=== PATIENT | female | born 1975 | race Caucasian/White ===

== ENCOUNTER 2020-03-26 12:03 | Outpatient (REF) | payer MEDICAID, SELFPAY | END 2020-03-26 12:04 | disposition home or self-care (01) | LOC: HO.LAB 12:03 | PROVIDERS: Visit Provider Internal Medicine | DX: Z20.828 Contact with and (suspected) exposure to other viral communicable diseases (principal) | CPT/HCPCS: C9803; U0003 ==

== ENCOUNTER 2022-12-13 15:35 | Outpatient (REF) | payer MEDICAID, SELFPAY ==
[2022-12-13 18:35] LABS: Thyroid Stimulating Hormone 0.79 uIU/mL (0.32-4.0); Vitamin D 25-OH Total 47.3 ng/mL (>30)
[2022-12-13 19:06] LABS: Vitamin B12 > 2000 pg/mL (200-900)
[2022-12-13 20:55] LABS: Alanine Aminotransferase 19 U/L (0-31); Albumin Level 4.3 g/dL (3.5-5.0); Alkaline Phosphatase 87 U/L (39-117); Anion Gap 15 (12-20); Aspartate Amino Transferase 18 U/L (5-31); Bilirubin Direct 0.1 mg/dL (0.0-0.5); Bilirubin Total 0.5 mg/dL (0.0-1.0); Blood Urea Nitrogen 18 mg/dL (9-16); Calcium 9.5 mg/dL (8.4-10.2); Carbon Dioxide 25 mmol/L (22-29); Chloride 105 mmol/L (96-108); Estimated Glomerular Filt Rate 60; Glucose Random 57 mg/dL (60-115); Potassium 3.1 mmol/L (3.3-5.1); Sodium 142 mmol/L (135-145); Total Protein 7.6 g/dL (6.5-8.0)
== END 2022-12-13 15:36 | disposition home or self-care (01) ==
LOC: HO.CHCLDS 15:35
PROVIDERS: Visit Provider Internal Medicine
DX: F32.A Depression, unspecified (principal)
CPT/HCPCS: 36415; 80048; 80076; 82306; 82607; 84443

== ENCOUNTER 2022-12-17 15:22 | Outpatient (REF) | payer MEDICAID, SELFPAY ==
[2022-12-17 19:09] LABS: Anion Gap 13 (12-20); Blood Urea Nitrogen 19 mg/dL (9-16); Calcium 9.4 mg/dL (8.4-10.2); Carbon Dioxide 26 mmol/L (22-29); Chloride 106 mmol/L (96-108); Estimated Glomerular Filt Rate > 60; Glucose Random 73 mg/dL (60-115); Lipase 35 U/L (8-78); Potassium 3.5 mmol/L (3.3-5.1); Sodium 141 mmol/L (135-145)
[2022-12-17 19:16] LABS: Insulin 51 uU/mL (2-29)
== END 2022-12-17 15:23 | disposition home or self-care (01) ==
LOC: HO.CHCLDS 15:22
PROVIDERS: Visit Provider Pediatrics
DX: E87.6 Hypokalemia (principal); E16.2 Hypoglycemia, unspecified
CPT/HCPCS: 36415; 80048; 83525; 83690

== ENCOUNTER 2023-03-30 11:19 | Outpatient (REF) | payer MEDICAID, SELFPAY ==
[2023-03-30 14:12] LABS: Hematocrit 40.2 % (37.0-47.0); Hemoglobin 13.7 g/dl (12.0-16.0); Mean Corpuscular HGB Conc 34.1 g/dl (31.0-35.0); Mean Corpuscular Hemoglobin 33.4 pg (27.0-33.0); Mean Platelet Volume 11.2 fL (9.4-12.3); Platelet Count 208 X10*3/uL (160-400); Red Cell Distribution Width 12.7 % (11.0-16.0)
[2023-03-30 14:48] LABS: Anion Gap 10 (12-20); Blood Urea Nitrogen 22 mg/dL (9-16); Calcium 9.2 mg/dL (8.4-10.2); Carbon Dioxide 27 mmol/L (22-29); Chloride 105 mmol/L (96-108); Estimated Glomerular Filt Rate > 60; Glucose Fasting 73 mg/dL (60-99); Potassium 3.8 mmol/L (3.3-5.1); Sodium 138 mmol/L (135-145)
== END 2023-03-30 11:20 | disposition home or self-care (01) ==
LOC: HO.CHCLDS 11:19
PROVIDERS: Visit Provider Internal Medicine
DX: E87.6 Hypokalemia (principal); N92.1 Excessive and frequent menstruation with irregular cycle
CPT/HCPCS: 36415; 80048; 85027

== ENCOUNTER 2024-06-21 16:14 | Outpatient (REF) | payer MEDICAID, SELFPAY ==
[2024-06-21 18:22] LABS: MANUAL DIFF FLAG NO
[2024-06-21 18:29] LABS: Basophils Absolute Auto 0.1 X10*3/uL (0.0-0.2); Basophils Percent Auto 0.7 % (0-2); Eosinophils Absolute Auto 0.4 X10*3/uL (0.0-0.4); Eosinophils Percent Auto 4.7 % (0-4); Hematocrit 41.2 % (37.0-47.0); Hemoglobin 14.4 g/dl (12.0-16.0); Imm Gran Abs Auto 0.04 X10*3/uL (0.00-0.03); Imm Gran Pct Auto 0.5 % (0.0-0.4); Lymphocytes Percent Auto 23.8 % (20-40); Mean Corpuscular Hemoglobin 34.4 pg (27.0-33.0); Mean Corpuscular Volume 98.3 fL (80.0-98.0); Mean Platelet Volume 10.6 fL (9.4-12.3); Monocytes Absolute Auto 0.5 X10*3/uL (0.1-1.2); Monocytes Percent Auto 6.3 % (2-11); Neutrophils Absolute Auto 5.5 x10*3/uL (2.0-8.3); Platelet Count 220 X10*3/uL (160-400); Red Blood Count 4.19 X10*6/uL (4.20-5.50); Red Cell Distribution Width 13.1 % (11.0-16.0); White Blood Count 8.6 X10*3/uL (4.8-10.8)
[2024-06-21 18:59] LABS: Alanine Aminotransferase 39 U/L (0-31); Albumin Level 4.1 g/dL (3.5-5.0); Alkaline Phosphatase 76 U/L (39-117); Anion Gap 12 (12-20); Aspartate Amino Transferase 55 U/L (5-31); Bilirubin Total 0.3 mg/dL (0.0-1.0); Blood Urea Nitrogen 17 mg/dL (9-16); Calcium 9.4 mg/dL (8.4-10.2); Carbon Dioxide 25 mmol/L (22-29); Chloride 106 mmol/L (96-108); Cholesterol 220 mg/dL (<200); Estimated Glomerular Filt Rate > 60; Glucose Random 97 mg/dL (60-115); HDL Cholesterol 40 mg/dL (>40); LDL Cholesterol Calculated 106 mg/dL (<100); Potassium 3.5 mmol/L (3.3-5.1); Sodium 139 mmol/L (135-145); Total Protein 7.5 g/dL (6.5-8.0); Triglycerides 374 mg/dL (<150)
[2024-06-21 19:13] LABS: TSH reflex Free T4 0.81 uIU/mL (0.32-4.0)
--- OUTSIDE RECORDS SUMMARY | 2024-06-21 19:19 | XMS_ITS | Encounter Summary ---
Author Organization [employer] Address [address] [address] Care Team Providers Care Electrician Assistant Name Role Phone Nancy Munoz MD Primary Care Provider [phone] Reason for Visit * Reason Onset Date Comments Lab Orders 04/29/2022 Encounter Details Date Type Department Care Team ([facility] st Contact Info) Description 04/29/2022 Telephone [facility] [address] [place] [address] Nancy Munoz MD [address] [place] [address] Lab Orders Social History Tobacco Use Types Packs/Day Years Used Date Smoking Tobacco: Never Assessed Comments Unknown Sex and Gender Information Value Date Recorded Sex Assigned at Female 02/22/2022 10:21 AM EDT Legal Sex Female 10:21 AM EDT Gender Identity Female 02/22/2022 10:21 AM EDT Sexual Orientation Straight 02/22/2022 10 :21 AM EDT documented as of this encounter Miscellaneous Notes * Telephone Encounter - Yvonne Monroy RN - 04/30/2022 11:58 AM EST Call to pt. States labs and mammogram were ordered during PE with PCP. Pt inquiring on status. Pt had PE on 02/24/22, which appears in the Next gen system. RN advised pt labs were ordered on 02/24/22. Advised the order appears in the system and informed pf of both the [facility] and [employer] [facility] lab hours. Pt verbalizes understanding. In regards to the mammogram order, advised will forward to [place] to follow up and return call to pt with status. Pt agrees. * Telephone Encounter - Miguelina Moraes - 04/29/2022 11:37 AM EST Tc from patient calling on the status of mammogram order and lab orders. documented in this encounter Plan of Treatment Not on file documented as of this encounter Visit Diagnoses Not on filedocumented in this encounter Care Teams Electrician Assistant Relationship Specialty Start Date End Date Nancy Munoz MD [address] [place] [phone] PCP - General Internal Medicine 12/09/11 documented as of this encounter
--- OUTSIDE RECORDS SUMMARY | 2024-06-21 19:19 | XMS_ITS | Clinical Summary ---
Author Organization [employer] Address 75 [facility] 7 [place] [address] Care Team Providers Care Billing Coordinator Name Role Phone Nancy Munoz MD Primary Care Provider [phone] Allergies Active Allergy Reactions Criticality Noted Date Comments Cephalexin 11/25/2011 Other reaction(s): facial and tongue swelling, tongue swelling Clindamycin Rash High 10/16/2018 Other reaction(s): N/V, Rash, Nausea / Vomiting Levofloxacin 06/01/2022 Other reaction(s): itching Medications furosemide (Lasix) 20 MG tabletIndication s:Primary hypertension TAKE 1 TABLET BY MOUTH EVERY DAY 30 tablet 1 05/24/19 23 Active doxycycline (Monodox) 100 MG capsuleIndicatio ns:Sinus congestion One twice a day for 7 days. Take with at least 8 ounces (large glass) of water, do not lie down for 30 minutes after 14 capsule 06/01/19 23 Active nicotine (Nicoderm, Step 3) 7 MG/24HR patchIndications :Personal history of tobacco use, presenting hazards to health APPLY 1 PATCH EVERY DAY 28 patch 1 07/09/19 23 Active glucose 4 g chewable tabletIndication s:Hypoglycemia Chew 4 tablets (16 g) if needed for low blood sugar. 50 tablet 12 12/17/19 23 Active valACYclovir (Valtrex) 500 MG tabletIndication s:Recurrent herpes simplex TAKE 1 TABLET (500 MG) BY MOUTH IN THE MORNING 30 tablet 11 07/06/19 24 025 Active hydrOXYzine HCl (Atarax) 25 MG tabletIndication s:Difficulty coping with new situations TAKE 1 TO 2 TABLETS BY MOUTH AT BEDTIME NEEDED FOR ITCHING OR ANXIETY 60 tablet 3 08/08/19 24 Active atenolol (Tenormin) 25 MG tabletIndication s:Primary hypertension TAKE 1 TABLET BY MOUTH EVERY DAY IN THE MORNING 90 tablet 1 09/06/19 24 Active gabapentin (Neurontin) 100 MG capsuleIndicatio ns:Early onset menopause TAKE 3 CAPSULES (300 MG) BY MOUTH AT BEDTIME. 30 capsule 11 11/09/19 24 025 Active loratadine (Claritin) 10 MG tabletIndication s:Seasonal allergies TAKE 1 TABLET BY MOUTH EVERY DAY IN THE MORNING 90 tablet 1 12/12/19 24 Active omeprazole (PriLOSEC) [address] capsule TAKE 1 CAPSULE BY MOUTH EVERY DAY BEFORE A MEAL 30 capsule 5 01/16/20 24 Active Banophen 25 MG capsuleIndicatio ns:Generalized anxiety disorder TAKE 2 CAPSULES BY MOUTH AT BEDTIME 60 capsule 3 02/15/20 24 Active guaiFENesin (Mucinex) 600 MG 12 hr tabletIndication s:URI, acute Take 1 tablet (600 mg) by mouth 2 times daily. Do not crush, chew, or split. 20 tablet 05/23/19 25 026 Active lisinopril-hydro CHLOROthiazide 10-12.5 MG tabletIndication s:Primary hypertension TAKE 1 TABLET BY MOUTH EVERY DAY 90 tablet 1 06/07/19 25 Active Diclofenac Sodium 1 % gelIndications:C lavicle pain,Muscle ache,Right upper quadrant pain TO APPLY TO THE AFFECTED AREA 3 TIMES A DAY 100 g 1 06/18/19 25 Active lisinopril-hydro CHLOROthiazide 10-12.5 MG tabletIndication s:Primary hypertension TAKE 1 TABLET BY MOUTH EVERY DAY 90 tablet 1 11/08/19 24 025 Discontinued ibuprofen 600 MG tabletIndication s:Chronic midline low back pain without sciatica TAKE 1 TABLET BY MOUTH EVERY 8 HOURS NEEDED FOR PAIN 90 tablet 1 03/19/20 24 025 Discontinued(Si de effects) Diclofenac Sodium 1 % gelIndications:C lavicle pain,Muscle ache,Right upper quadrant pain TO APPLY TO THE AFFECTED AREA 3 TIMES A DAY 100 g 1 04/16/20 24 025 Discontinued acetaminophen (Tylenol Extra Strength) 500 MG tabletIndication s:URI, acute Take 1 tablet (500 mg) by mouth every 8 (eight) hours if needed for mild pain for up to 10 days. 30 tablet 05/23/19 25 025 Active Problems Problem Noted Date Diagnosed Date Rhinitis, allergic 05/13/2022 Gastroesophageal reflux disease in pediatric pat ient 09/10/2021 Weight increasing 09/10/2021 Chronic back pain 02/25/2021 Varicose veins of both lower extremities 021 Hypertensive disorder 08/19/2018 Depressive disorder 09/25/2011 Encounters Date Type Department Care Team Description 06/21/2024 Telephone [facility] [address] [place] [address] Nancy Munoz MD Medication Question 06/18/2024 Refill [facility] [address] [place] [address] Nancy Munoz MD Clavicle pain; Muscle ache; Right upper quadrant pain 06/06/2024 Refill [facility] [address] [place] [address] Nancy Munoz MD Primary hypertension 05/30/2024 Telephone [facility] [address] [place] [address] Nancy Munoz MD Nurse Triage 05/23/2024 2:20 PM EST Office Visit [facility] [address] [place] [address] Nancy Munoz MD URI, acute (Primary Dx); Primary hypertension; Dietary counseling; Exercise counseling; Class 2 severe obesity due to excess calories with serious comorbidity and body mass index (BMI) of 36.0 to 36.9 in adult ([facility]) 05/23/2024 Travel 05/23/2024 Telephone [facility] [address] [place] [address] Nancy Munoz MD Nurse Triage 04/16/2024 Refill [facility] [address] [place] [address] Nancy Munoz MD Clavicle pain; Muscle ache; Right upper quadrant pain from Last 3 Months Family History Medical History Relation Name Comments Breast cancer Mother Ovarian cancer Mother Relation Name Status Comments Mother Social History Tobacco Use Types Packs/Day Years Used Date Smoking Tobacco: Every Day Cigarettes 0.5 30 Passive Smoke Exposure: Current Smokeless Tobacco: Never Tobacco Cessation:Ready to Q uit: Not Asked; Counseling Given: Not Answered Comments:Pt is currently cutting down to about 5 cig a day. Comments No Sex and Gender Information Value Date Recorded Sex Assigned at Female 02/22/2022 10:21 AM EDT Legal Sex Female 10:21 AM EDT Gender Identity Female 02/22/2022 10:21 AM EDT Sexual Orientation Straight 02/22/2022 10 :21 AM EDT Last Filed Vital Signs Vital Sign Reading Time Taken Comments Blood Pressure 148/92 05/23/2024 2:25 PM EST Pulse 88 05/23/2024 2:25 PM EST Temperature 36.7 ??C (98 ??F) 05/23/2024 2:25 PM EST Respiratory Rate 20 05/23/2024 2:25 PM EST Oxygen Saturation 98% 05/23/2024 2:25 PM EST Inhaled Oxygen Concentration - - Weight 89.4 kg (197 lb) 05/23/2024 2:25 PM EST Height 157.5 cm (5' 2 ) 05/23/2024 2:25 PM EST Body Mass Index 36.03 05/23/2024 2:25 PM EST Plan of Treatment Health Maintenance Due Date Last Done Comments CT Colonography 1974 Colonoscopy 1974 Colorectal Cancer Screening 1974 Depression Screening 1974 FIT DNA/Cologuard 1974 FIT 1974 FOBT 1974 SDOH Screening 1974 Sigmoidoscopy 1974 Alcohol/Substance Use Screening 1986 Family Planning (PISQ) 1989 Hepatitis B Vaccines (1 of 3 - 19+ 3-dose series) 1993 Pneumococcal Vaccine: 50+ Years (1 of 2 - PCV) 1993 Pap Smear 04/03/2023 04/03/2020 COVID-19 Vaccine (2023- season) 2023 Influenza Vaccine (#1) 2023 0, 01/12/2019, 01/30/2018, Additional history exists Zoster Vaccines (1 of 2) 2024 Mammogram 09/08/2024 09/08/2022, 09/20/2018 Tobacco Screening 02/09/2025 02/10/2024 Cervical Cancer Screening 04/03/2025 HPV/Cotest 04/03/2025 04/03/2020, 02/03/2016 DTaP/Tdap/Td Vaccines (2 - Td or Tdap) 12/30/2025 12/31/2015 Lipid Panel 06/21/2029 06/21/2024, 12/17/2020 RSV Patients and Patients Aged 60 years or older (1 - 1-dose 75+ series) 2049 HIV Screening Completed 04/03/2020 Hepatitis C Screening Completed 04/03/2020 HIB Vaccines Aged Out No longer eligi ble based on patient's age to complete this topic HPV Vaccines Aged Out No longer eligi ble based on patient's age to complete this topic Hepatitis A Vaccines Aged Out No long er eligible based on patient's age to complete this topic IPV Vaccines Aged Out No longer eligi ble based on patient's age to complete this topic Meningococcal Vaccine Aged Out No shanna delmar eligible based on patient's age to complete this topic RSV under 20 months Aged Out No longe r eligible based on patient's age to complete this topic Rotavirus Vaccines Aged Out No longer eligible based on patient's age to complete this topic Procedures Procedure Name Priority Date/Time Associated Diagnosis Comments TSH W/REFLEX TO FT4 Routine 06/21/2024 4 :15 PM EST Primary hypertension LIPID PANEL, STANDARD Routine 06/21/2024 4:15 PM EST Primary hypertension COMPREHENSIVE METABOLIC PANEL Routine 06/21/2024 4:15 PM EST Primary hypertension CBC WITH AUTO DIFFERENTIAL Routine 06/21/2024 4:15 PM EST Primary hypertension HM MAMMOGRAPHY Routine 09/08/2022 ZZZ HISTORICAL HEPATITIS C AB W/REFL TO HCV RNA, QN, PCR Routine 04/03/2020 12:02 PM EST HIV 1/2 ANTIGEN/ANTIBODY, FOURTH GENERATION W/RFL Routine 04/03/2020 12:02 PM EST HPV MRNA E6/E7 Routine 04/03/2020 11:10 AM EST THINPREP PAP Routine 04/03/2020 11:10 AM EST from Last 3 Months or Most Recently Relevant to Health Maintenance Results * TSH W/Reflex to FT4 (06/21/2024 4:15 PM EST) TSH reflex Free T4 0.81 0.32 - 4.0 uIU/mL [facility] Blood Venous blood specimen / Unknown 06/21/2024 4:15 PM EST 06/21/2024 6:11 PM EST Nancy Munoz MD LAB BLOOD ORDERABLES Final Result [facility] [address] [place] [phone] * (ABNORMAL) CBC auto differential (06/21/2024 4:15 PM EST) White Blood Count 8.6 4.8 - 10.8 X10*3/uL [facility] Red Blood Count 4.19(L) 4.20 - 5.50 X10*6/uL [facility] Hemoglobin 14.4 12.0 - 16.0 g/dl [facility] Hematocrit 41.2 37.0 - 47.0 % [facility] Mean Corpuscular Volume 98.3(H) 80.0 - 98.0 fL [facility] Mean Corpuscular Hemoglobin 34.4(H) 27.0 - 33.0 pg [facility] Mean Corpuscular HGB Conc 35.0 31.0 - 35.0 g/dl [facility] Red Cell Distribution Width 13.1 11.0 - 16.0 % [facility] Platelet Count 220 160 - 400 X10*3/uL [facility] Mean Platelet Volume 10.6 9.4 - 12.3 fL [facility] Neutrophils Percent Auto 64.0 45 - 73 % [facility] Imm Gran Pct Auto 0.5(H) 0.0 - 0.4 % [facility] Lymphocytes Percent Auto 23.8 20 - 40 % [facility] Monocytes Percent Auto 6.3 2 - 11 % [facility] Eosinophils Percent Auto 4.7(H) 0 - 4 % [facility] Basophils Percent Auto 0.7 0 - 2 % [facility] NRBC Pct Auto 0.0 0.0 - 0.2 /100WBC [facility] Neutrophils Absolute Auto 5.5 2.0 - 8.3 x10*3/uL [facility] Imm Gran Abs Auto 0.04(H) 0.00 - 0.03 X10*3/uL [facility] Lymphocytes Absolute Auto 2.0 1.2 - 4.9 X10*3/uL [facility] Monocytes Absolute Auto 0.5 0.1 - 1.2 X10*3/uL [facility] Eosinophils Absolute Auto 0.4 0.0 - 0.4 X10*3/uL [facility] Basophils Absolute Auto 0.1 0.0 - 0.2 X10*3/uL [facility] NRBC Abs Auto 0.000 0.0 - 0.012 X10*3/uL [facility] Blood Venous blood specimen / Unknown 06/21/2024 4:15 PM EST 06/21/2024 6:11 PM EST us Nancy Munoz MD LAB BLOOD ORDERABLES Final Result [facility] [address] [place] [phone] * (ABNORMAL) Lipid Panel, Standard (06/21/2024 4:15 PM EST) Triglycerides 374(H) <150 mg/dL [facility] Comment:Desirable Triglyceri de: less than 150 mg/dLBorderline High Triglyceride 150-199 mg/dLHigh Triglyceride: 200-499 mg/dLVery High Triglyceride: greater than or equal to 5OO mg/dL Cholesterol 220(H) <200 mg/dL [facility] Comment:Desirable Cholestero l: less than 200 mg/dLBorderline High Cholesterol: 200-239 mg/dLHigh Cholesterol: greater than 239 mg/dL LDL Cholesterol Calculated 106(H) <100 mg/dL [facility] Comment:Desirable LDL: less than 100 mg/dLNear Optimal/Above Optimal LDL: 110- 129 mg/dLBorderline High LDL: 130-159 mg/dLHigh LDL: 160-189 mg/dLVery High LDL: greater than or equal to 190 mg/dL HDL Cholesterol 40(L) >40 mg/dL [facility] Comment:Desirable HDL: great er than 40 mg/dL Note: This HDL assay may give artificially low results in patients with liver disease. Blood Venous blood specimen / Unknown 06/21/2024 4:15 PM EST 06/21/2024 6:11 PM EST us Nancy Munoz MD LAB BLOOD ORDERABLES Final Result [facility] [address] [place] [phone] * (ABNORMAL) Comprehensive Metabolic Panel (06/21/2024 4:15 PM EST) Sodium 139 135 - 145 mmol/L [facility] Potassium 3.5 3.3 - 5.1 mmol/L [facility] Chloride 106 96 - 108 mmol/L [facility] Carbon Dioxide 25 22 - 29 mmol/L [facility] Anion Gap 12 12 - 20 [facility] Urea Nitrogen (BUN) 17(H) 9 - 16 mg/dL [facility] Creatinine, Serum 0.83 0.5 - 1.4 mg/dL [facility] Estimated Glomerular Filt Rate >60 [facility] Comment:Chronic Kidney Disea se: Estimated GFR < 60 mL/min/1.50y0Izkqiv Kidney Disease: Estimated GFR < 15 mL/min/1.73m2 Glucose 97 60 - 115 mg/dL [facility] Calcium 9.4 8.4 - 10.2 mg/dL [facility] Bilirubin, Total 0.3 0.0 - 1.0 mg/dL [facility] Aspartate Amino Transferase 55(H) 5 - 31 U/L [facility] Alanine Aminotransferase 39(H) 0 - 31 U/L [facility] Total Protein 7.5 6.5 - 8.0 g/dL [facility] Albumin Level 4.1 3.5 - 5.0 g/dL [facility] Alkaline Phosphatase 76 39 - 117 U/L [facility] Blood Venous blood specimen / Unknown 06/21/2024 4:15 PM EST 06/21/2024 6:11 PM EST Nancy Munoz MD LAB BLOOD ORDERABLES Final Result [facility] [address] [place] [phone] * Mammography (09/08/2022) Pathologist [facility] Mammogram performed Anatomical Region Laterality Modality Other Historical Provider HEALTH MAINTENANCE Final Result * HEPATITIS C AB W/REFL TO HCV RNA, QN, PCR (04/03/2020 12:02 PM EST) Pathologist [facility] HEPATITIS C ANTIBODY NON-REACT WILLIAM NON-REACT [facility] INDEX 0.03 <1.00 [facility] Comment: ?? HCV antibody was non-reactive. There is no laboratory ?? evidence of HCV infection. ?? In most cases, no further action is required. However, if recent HCV exposure is suspected, a test for HCV RNA (test code 06929) is suggested. ?? For additional information please refer to http://education.[employer]/faq/GOL48w5 (This link is being provided for informational/ educational purposes only.) ?? 04/03/2020 12:0 2 PM EST Ingrid AGUILAR HISTORICAL/NON ORDERABLE LABS Final Result Performing Organization Address [facility] Phone Number [facility] [address] [place] [address], * HIV 1/2 ANTIGEN/ANTIBODY,FOURTH GENERATION W/RFL (04/03/2020 12:02 PM EST) Pathologist [facility] HIV-1/2 ANTIGEN AND ANTIBODIES, 4TH GENERATION W/ REFLEX NON-REACT WILLIAM NON-REACT WILLIAM [facility] Comment: HIV-1 antigen and HIV-1/HIV-2 antibodies were not detected. There is no laboratory evidence of HIV infection. ?? PLEASE NOTE: This information has been disclosed to you from records whose confidentiality may be protected by state law. ??If your state requires such protection, then the state law prohibits you from making any further disclosure of the information without the specific written consent of the person to whom it pertains, or as otherwise permitted by law. A general authorization for the release of medical or other information is NOT sufficient for this purpose. ? For additional information please refer to http://education.Company.[employer]Show/faq/YOI590 (This link is being provided for informational/ educational purposes only.) ? The performance of this assay has not been clinically validated in patients less than 2 years old. ?? 04/03/2020 12:0 2 PM EST Ingrid Boyd [facility] LAB BLOOD ORDERABLES Mary l Result Performing Organization Address [facility] de Phone Number [facility] [address] [place] [address], * THINPREP PAP (04/03/2020 11:10 AM EST) Pathologist [facility] Clinical Information: None given [facility] COMMENT SEE COMMENT [facility] Comment: EXPLANATORY NOTE: ? The Pap is a screening test for cervical cancer. It is ?? not a diagnostic test and is subject to false negative ?? and false positive results. It is most reliable when a ?? satisfactory sample, regularly obtained, is submitted ?? with relevant clinical findings and history, and when ?? the Pap result is evaluated along with historic and ?? current clinical information. ?? Contract Loader : SEE COMMENT [facility] Comment: MSM, CT(ASCP) CT screening location: [address] ??[id number] Infection Shift in vaginal shereen suggestive of bacterial vaginosis. [facility] Interpretation/R esult: Negative for intraepithelial lesion or malignancy. [facility] LMP: NONE [facility] Prev. BX: NONE [facility] Prev. PAP: NONE [facility] SOURCE: None given [facility] Statement Of Adequacy: SEE COMMENT [facility] Comment: Satisfactory for evaluation. Endocervical/transformation zone component present. Age and/or menstrual status not provided 04/03/2020 11:1 0 AM EST Ingrid Boyd [facility] PATHOLOGY ORDERABLES Final Result Performing Organization Address [facility] de Phone Number [facility] [address] * HPV mRNA E6/E7 (04/03/2020 11:10 AM EST) HPV nRNA E6/E7 Not Detected Not Detected [facility] Comment: This test was performed using the APTIMA HPV Assay ([employer] This assay detects E6/E7 viral messenger RNA (mRNA) from 14 high-risk HPV types (16,18,31,33,35,39,45,51,52,56,58,59,66,68). ?? The analytical performance characteristics of this assay have been determined by [employer]. The modifications have not been cleared or approved by the FDA. This assay has been validated pursuant to the CLIA regulations and is used for clinical purposes. 04/03/2020 11:1 0 AM EST Ingrid AGUILAR LAB BLOOD ORDERABLES Mary l Result Performing Organization Address [facility] de Phone Number [facility] [address] from Last 3 Months or Most Recently Relevant to Health Maintenance Insurance [place] [address] [address] C3 Care Teams Billing Coordinator Relationship Specialty Start Date End Date Nancy Munoz MD [address] [place] [phone] PCP - General Internal Medicine 12/09/11
--- OUTSIDE RECORDS SUMMARY | 2024-06-21 19:19 | XMS_ITS | Encounter Summary ---
Author Organization [employer] Address [address] [facility] [address] [place] [address] Care Team Providers Care Automated Access Systems Technician Name Role Phone Nancy Munoz MD Primary Care Provider [phone] Encounter Details Date Type Department Care Team ([facility] st Contact Info) Description 12/13/2022 Orders Only [facility] [address] [place], [place] [phone] KrugerTeodoro Beauchamp MD [address] [place] [address] Social History Tobacco Use Types Packs/Day Years Used Date Smoking Tobacco: Every Day Cigarettes 0.5 30 Smokeless Tobacco: Never Comments:Pt is currently cut ting down to about 5 cig a day. Comments No Sex and Gender Information Value Date Recorded Sex Assigned at Female 02/22/2022 10:21 AM EDT Legal Sex Female 10:21 AM EDT Gender Identity Female 02/22/2022 10:21 AM EDT Sexual Orientation Straight 02/22/2022 10 :21 AM EDT documented as of this encounter Plan of Treatment Not on file documented as of this encounter Visit Diagnoses Not on filedocumented in this encounter Care Teams Automated Access Systems Technician Relationship Specialty Start Date End Date Nancy Munoz MD [address] [place] [address] PCP - General Internal Medicine 12/09/11 documented as of this encounter
--- OUTSIDE RECORDS SUMMARY | 2024-06-21 19:19 | XMS_ITS | Clinical Summary ---
Author Organization [facility] ity Address [address] [place] [address] Care Team Providers Care Airport Driver Name Role Phone Yvonne Munoz MD Primary Care Provider [phone] Surgical History Surgery Date Site/Laterality Comments CHOLECYSTECTOMY 2006 PROCEDURE: HISTORICAL CHOLECYSTECTOMY Medical History Medical History Date Comments Seasonal allergies DX:Seasonal a llergies Family History Relation Name Status Comments Father Alive [place] in 40s Maternal Grandfather Lung Ca Mother Alive depression Social History Tobacco Use Types Packs/Day Years Used Date Smoking Tobacco: Every Day Cigarettes Smokeless Tobacco: Never Alcohol Use Standard Drinks/Week Comments Yes 0 (1 standard drink = 0.6 oz pur e alcohol) Comments Unknown Sex and Gender Information Value Date Recorded Sex Assigned at Not on file Legal Sex Female 2:17 PM EST Gender Identity Not on file Sexual Orientation Not on file Obstetrics History Plan of Treatment Health Maintenance Due Date Last Done Comments DTaP,Tdap,and Td Vaccines (1 - Tdap) 1993 Hepatitis B Vaccines (1 of 3 - 19+ 3-dose series) 1993 Pneumococcal Vaccine: 50+ Ye ars (1 of 2 - PCV) 1993 Pneumococcal Vaccine: Pediat rics (0 to 5 Years) and At-Risk Patients (6 to 64 Years) (1 of 2 - PCV) 1993 Cervical Cancer Screening: P ap Smear 1995 Breast Cancer Screening 09/20/2020 09/20/2018 Colorectal Cancer Screening: Colonoscopy 05/24/2023 Depression Screening 05/24/2023 HIV Screening 05/24/2023 Hepatitis C Screening 05/24/2023 Social Influencers of Health Screening 05/24/2023 COVID-19 Vaccine ( - 2023-2 5 season) 2023 Influenza Vaccine (#1) 2023 03/15/2011 Zoster Vaccines (1 of 2) 2024 HIB Vaccines Aged Out No longer eligi [...] on patient's age to complete this topic MMR Vaccines Aged Out No longer eligi ble based on patient's age to complete this topic Meningococcal ACWY Vaccine Aged Out N o longer eligible based on patient's age to complete this topic Meningococcal B Vacine Aged Out No lo nger eligible based on patient's age to complete this topic RSV Immunization Patients Un praveen 20 months Aged Out No longer eligible b ased on patient's age to complete this topic Varicella Vaccines Aged Out No longer eligible based on patient's age to complete this topic Procedures Procedure Name Priority Date/Time Associated Diagnosis Comments [facility] Routine 09/20/2018 5:09 PM EDT Encounter for screening mammogram for malignant neoplasm of breast from Last 3 Months or Most Recently Relevant to Health Maintenance Results * [facility] (09/20/2018 5:09 PM EDT) Anatomical Region Laterality Modality Mammography 09/20/2018 10:4 9 AM EDT Narrative 09/20/2018 5:[address] [facility] Diagnostic Imaging Department [address] [place] [address] Patient: ??RITA JERONIMO ?/Age/Sex: 1975 - 43 - Unit#: ??[id number] ? Location/Status: ??SPDIMAM/REG CLI ? Mnemonic/Ordering Site: ??DIGSC/SPMAM Ordering Physician: ??YVONNE MUNOZ MD [facility] Screening Digital - 09/20/18 - 1123 EXAM: [facility] Screening Digital EXAM DATE AND TIME: 09/20/2018 11:24 AM HISTORY: ??Screening. Baseline exam. Mother had breast carcinoma age 55. COMPARISON: ??No comparison studies. TECHNIQUE: CC and MLO views of both breasts were obtained using full field digital mammography. Bilateral digital breast tomosynthesis was performed in the MLO projection. Computer aided detection with the [employer] 7.2-H was employed. TISSUE DENSITY: b. There are scattered areas of fibroglandular density. FINDINGS: No suspicious masses, grouped microcalcifications, or areas of architectural distortion are seen. The skin and vascularity are unremarkable. IMPRESSION: No mammographic evidence of malignancy is seen. A negative mammogram in the presence of a clinically suspicious palpable abnormality does not preclude the possibility of malignancy or alter the indications for biopsy. BI-RADS: ??Category 1: Negative RECOMMENDATION(S): 1: Routine screening mammogram BILATERAL in 1 year. 82742, 90694 3341F, 7025F Dictating Physician: ??SELENA CARVALHO MD Electronically Signed by: ??SELENA CARVALHO MD Dic Date/Time: ??09/20/181708 Sign date/Time: ??09/20/181708 Procedure Note Selena Carvalho - 04/13/2022 [facility] Diagnostic Imaging Department [address] [place] [address] Patient: RITA JERONIMO /Age/Sex: 1975 - 43 - F Unit#: [id number] Location/Status: SPDIMAM/REG CLI Mnemonic[facility]ing [facility] Ordering Physician: YVONNE MUNOZ MD [facility] Screening Digital - 09/20/18 - 1122 EXAM: [facility] Screening Digital EXAM DATE AND TIME: 09/20/2018 11:24 AM HISTORY: Screening. Baseline exam. Mother had breast carcinoma age 55. COMPARISON: No comparison studies. TECHNIQUE: CC and MLO views of both breasts were obtained using fullfield digital mammography. Bilateral digital breast tomosynthesis was performedin the MLO projection. Computer aided detection with the [employer] 7.2[employer] employed. TISSUE DENSITY: b. There are scattered areas of fibroglandular density. FINDINGS: No suspicious masses, grouped microcalcifications, or areas ofarchitectural distortion are seen. The skin and vascularity are unremarkable. IMPRESSION: No mammographic evidence of malignancy is seen. A negative mammogram in the presence of a clinically suspicious palpable abnormality does not preclude the possibility of malignancy or alter the indications for biopsy. BI-RADS: Category 1: Negative RECOMMENDATION(S): 1: Routine screening mammogram BILATERAL in 1 year. 65134, 36970 3341F, 7025F Dictating Physician: SELENA CARVALHO MD Electronically Signed by: SELENA CARVALHO MD Dic Date/Time: 09/20/181708 Sign date/Time: 09/20/181708 Yvonne Munoz MD IMG BI PROCEDURES Final R esult from Last 3 Months or Most Recently Relevant to Health Maintenance Care Teams Airport Driver Relationship Specialty Start Date End Date Yvonne Munoz MD [address] [place] [address] PCP - General 07/12/17
--- OUTSIDE RECORDS SUMMARY | 2024-06-21 19:19 | XMS_ITS | Encounter Summary ---
Author Organization [email or web address] Address [address] [facility] [address] [address] Care Team Providers Care Manager Career Name Role Phone Nancy Munoz MD Primary Care Provider [phone] [phone] Encounter Details Date Type Department Care Team ([facility] st Contact Info) Description 05/23/2024 2:20 PM EST Office Visit [facility] [address] [place], [place] [phone] Nancy Munoz MD [address] [place] [address] URI, acute (Primary Dx); Primary hypertension; Dietary counseling; Exercise counseling; Class 2 severe obesity due to excess calories with serious comorbidity and body mass index (BMI) of 36.0 to 36.9 in adult ([facility]) Social History Tobacco Use Types Packs/Day Years Used Date Smoking Tobacco: Every Day Cigarettes 0.5 30 Passive Smoke Exposure: Current Smokeless Tobacco: Never Comments:Pt is currently cut ting down to about 5 cig a day. Comments No Sex and Gender Information Value Date Recorded Sex Assigned at Female 02/22/2022 10:21 AM EDT Legal Sex Female 10:21 AM EDT Gender Identity Female 02/22/2022 10:21 AM EDT Sexual Orientation Straight 02/22/2022 10 :21 AM EDT documented as of this encounter Last Filed Vital Signs Vital Sign Reading [...] Mass Index 36.03 05/23/2024 2:25 PM EST documented in this encounter Progress Notes * Nancy Munoz MD - 05/23/2024 2:20 PM EST Subjective Patient ID: Rita Escalante is a 48 y.o. female who presents for No chief complaint on file.. HPI History from triage confimed: Pt reports right ear with pain, swollen gland behind right ear and muffled hearing. Pt has had a cold for last 2 days and nasal congestion. Pt also reports infected tooth on the right side of jaw. Neg for fever Has been using guaifenesin and Sudafed since Tuesday. No reported fever. Reports ? Chills yesterday. Patient Active Problem List Diagnosis Chronic back pain Depressive disorder Gastroesophageal reflux disease in pediatric patient Hypertensive disorder Varicose veins of both lower extremities Weight increasing Rhinitis, allergic Current Outpatient Medications on File Prior to Visit Medication Sig Dispense Refill atenolol (Tenormin) 25 MG tablet TAKE 1 TABLET BY MOUTH EVERY DAY IN THE MORNING 90 tablet 1 Banophen 25 MG capsule TAKE 2 CAPSULES BY MOUTH AT BEDTIME 60 capsule 3 Diclofenac Sodium 1 % gel TO APPLY TO THE AFFECTED AREA 3 TIMES A DAY 100 g 1 doxycycline (Monodox) 100 MG capsule One twice a day for 7 days. Take with at least 8 ounces (largeglass) of water, do not lie down for 30 minutes after 14 capsule 0 furosemide (Lasix) 20 MG tablet TAKE 1 TABLET BY MOUTH EVERY DAY 30 tablet 1 gabapentin (Neurontin) 100 MG capsule TAKE 3 CAPSULES (300 MG) BY MOUTH AT BEDTIME. 30 capsule 11 glucose 4 g chewable tablet Chew 4 tablets (16 g) if needed for low blood sugar. 50 tablet 12 hydrOXYzine HCl (Atarax) 25 MG tablet TAKE 1 TO 2 TABLETS BY MOUTH AT BEDTIME NEEDED FOR ITCHINGOR ANXIETY 60 tablet 3 ibuprofen 600 MG tablet TAKE 1 TABLET BY MOUTH EVERY 8 HOURS NEEDED FOR PAIN 90 tablet 1 lisinopril-hydroCHLOROthiazide 10-12.5 MG tablet TAKE 1 TABLET BY MOUTH EVERY DAY 90 tablet 1 loratadine (Claritin) 10 MG tablet TAKE 1 TABLET BY MOUTH EVERY DAY IN THE MORNING 90 tablet 1 nicotine (Nicoderm, Step 3) 7 MG/24HR patch APPLY 1 PATCH EVERY DAY 28 patch 1 omeprazole (PriLOSEC) [address] capsule TAKE 1 CAPSULE BY MOUTH EVERY DAY BEFORE A MEAL 30 capsule 5 valACYclovir (Valtrex) 500 MG tablet TAKE 1 TABLET (500 MG) BY MOUTH IN THE MORNING 30 tablet 11 No current facility-administered medications on file prior to visit. Allergies Allergen Reactions Clindamycin Rash Other reaction(s): N/V, Rash, Nausea / Vomiting Cephalexin Other reaction(s): facial and tongue swelling, tongue swelling Levofloxacin Other reaction(s): itching Review of Systems Constitutional: Positive for chills and fatigue. Negative for appetite change, diaphoresis and fever. HENT: Positive for congestion. Eyes: Negative for pain and itching. Respiratory: Positive for cough. Negative for choking and chest tightness. Genitourinary: Negative for dyspareunia, dysuria and enuresis. Objective BP (!) 148/92 (BP Location: Left arm, Patient Position: Sitting, BP Cuff Size: Adult long) Pulse 88 Temp 98 ??F (36.7 ??C) (Oral) Resp 20 Ht 5' 2 (1.575 m) Wt 197 lb (89.4 kg) SpO2 98% BMI 36.03 kg/m?? Physical Exam Constitutional: General: She is not in acute distress. Appearance: Normal appearance. She is obese. She is not ill-appearing, toxic- appearing or diaphoretic. HENT: Nose: Right Turbinates: Enlarged. Left Turbinates: Enlarged. Pulmonary: Effort: Pulmonary effort is normal. Neurological: Mental Status: She is alert. Assessment/Plan Diagnoses and all orders for this visit: URI, acute Comments: Supportive care: fluids, Rest at home TYlenol around the clock. Orders: - acetaminophen (Tylenol Extra Strength) 500 MG tablet; Take 1 tablet (500 mg) by mouth every 8 (eight) hours if needed for mild pain for up to 10 days. - guaiFENesin (Mucinex) 600 MG 12 hr tablet; Take 1 tablet (600 mg) by mouth 2 times daily. Do not crush, chew, or split. Primary hypertension Comments: Elevated BP most likely secondary to the use of Sudafed To stop Sudafed. DASH diet. Continue with the same meds Orders: - CBC auto differential; Future - Comprehensive Metabolic Panel; Future - Lipid Panel, Standard; Future - TSH W/Reflex to FT4; Future Dietary counseling Exercise counseling Class 2 severe obesity due to excess calories with serious comorbidity and body mass index (BMI) of36.0 to 36.9 in adult ([facility]) Discussed calorie deficit, recommended reduction of 20-30% of maintenance calories; polisher hand referral offered. Recommended to decrease soda and sugary beverage consumption. Recommended at least 20 g per meal of protein to assist with satiety. Recommended at least 150 min/week of moderate intensity exercise. documented in this encounter Plan of Treatment Scheduled Orders Name Type Priority Associated Diagnoses Orde r Schedule POCT Rapid Covid-19 BinaxNOW Point of Care Testing Routine URI, acute Ordered: 05/23/2024 POCT Rapid Influenza A OSOM Point of Care Testing Routine URI, acute Ordered: 05/23/2024 POCT Rapid Influenza B OSOM Point of Care Testing Routine URI, acute Ordered: 05/23/2024 documented as of this encounter Procedures Procedure Name Priority Date/Time Associated Diagnosis Comments TSH W/REFLEX TO FT4 Routine 06/21/2024 4 :15 PM EST Primary hypertension CBC WITH AUTO DIFFERENTIAL Routine 06/21/2024 4:15 PM EST Primary hypertension LIPID PANEL, STANDARD Routine 06/21/2024 4:15 PM EST Primary hypertension COMPREHENSIVE METABOLIC PANEL Routine 06/21/2024 4:15 PM EST Primary hypertension documented in this encounter Results * TSH W/Reflex to FT4 (06/21/2024 4:15 PM EST) TSH reflex Free T4 0.81 0.32 - 4.0 uIU/mL [facility] Blood Venous blood specimen / Unknown 06/21/2024 4:15 PM EST 06/21/2024 6:11 PM EST us Nancy Munoz MD LAB BLOOD ORDERABLES Final Result Performing Organization Address [facility] Co de Phone Number [facility] [address] [place] [phone] [phone] * (ABNORMAL) Lipid Panel, Standard (06/21/2024 4:15 PM EST) Triglycerides 374(H) <150 mg/dL [facility] Comment:Desirable Triglyceri de: less than 150 mg/dLBorderline High Triglyceride 150-199 mg/dLHigh Triglyceride: 200-499 mg/dLVery High Triglyceride: greater than or equal to 5OO mg/dL Cholesterol 220(H) <200 mg/dL [facility] Comment:Desirable Cholestero l: less than 200 mg/dLBorderline High Cholesterol: 200-239 mg/dLHigh Cholesterol: greater than 239 mg/dL LDL Cholesterol Calculated 106(H) <100 mg/dL [facility] Comment:Desirable LDL: less than 100 mg/dLNear Optimal/Above Optimal LDL: 110- 129 mg/dLBorderline High LDL: 130-159 mg/dLHigh LDL: 160-189 mg/dLVery High LDL: greater than or equal to 190 mg/dL HDL Cholesterol 40(L) >40 mg/dL [facility] Comment:Desirable HDL: great er than 40 mg/dL Note: This HDL assay may give artificially low results in patients with liver disease. Blood Venous blood specimen / Unknown 06/21/2024 4:15 PM EST 06/21/2024 6:11 PM EST us Nancy Munoz MD LAB BLOOD ORDERABLES Final Result Performing Organization Address [facility]/ZIP Co de Phone Number [facility] [address] [place] [phone] * (ABNORMAL) Comprehensive Metabolic Panel (06/21/2024 4:15 PM EST) Sodium 139 135 - 145 mmol/L [facility] Potassium 3.5 3.3 - 5.1 mmol/L [facility] Chloride 106 96 - 108 mmol/L [facility] Carbon Dioxide 25 22 - 29 mmol/L [facility] Anion Gap 12 12 - 20 [facility] Urea Nitrogen (BUN) 17(H) 9 - 16 mg/dL [facility] Creatinine, Serum 0.83 0.5 - 1.4 mg/dL [facility] Estimated Glomerular Filt Rate >60 [facility] Comment:Chronic Kidney Disea se: Estimated GFR < 60 mL/min/1.11t5[place] Kidney Disease: Estimated GFR < 15 mL/min/1.73m2 Glucose 97 60 - 115 mg/dL [facility] Calcium 9.4 8.4 - 10.2 mg/dL [facility] Bilirubin, Total 0.3 0.0 - 1.0 mg/dL [facility] Aspartate Amino Transferase 55(H) 5 - 31 U/L [facility] Alanine Aminotransferase 39(H) 0 - 31 U/L [facility] Total Protein 7.5 6.5 - 8.0 g/dL [facility] Albumin Level 4.1 3.5 - 5.0 g/dL [facility] Alkaline Phosphatase 76 39 - 117 U/L [facility] Blood Venous blood specimen / Unknown 06/21/2024 4:15 PM EST 06/21/2024 6:11 PM EST us Nancy Munoz MD LAB BLOOD ORDERABLES Final Result [facility] [address] [place] [phone] [phone] * (ABNORMAL) CBC auto differential (06/21/2024 4:15 PM EST) White Blood Count 8.6 4.8 - 10.8 X10*3/uL [facility] Red Blood Count 4.19(L) 4.20 - 5.50 X10*6/uL [facility] Hemoglobin 14.4 12.0 - 16.0 g/dl [facility] Hematocrit 41.2 37.0 - 47.0 % [facility] Mean Corpuscular Volume 98.3(H) 80.0 - 98.0 fL [facility] Mean Corpuscular Hemoglobin 34.4(H) 27.0 - 33.0 pg [facility] Mean Corpuscular HGB Conc 35.0 31.0 - 35.0 g/dl [facility] Red Cell Distribution Width 13.1 11.0 - 16.0 % [facility] Platelet Count 220 160 - 400 X10*3/uL [facility] Mean Platelet Volume 10.6 9.4 - 12.3 fL [facility] Neutrophils Percent Auto 64.0 45 - 73 % [facility] Imm Gran Pct Auto 0.5(H) 0.0 - 0.4 % [facility] Lymphocytes Percent Auto 23.8 20 - 40 % [facility] Monocytes Percent Auto 6.3 2 - 11 % [facility] Eosinophils Percent Auto 4.7(H) 0 - 4 % [facility] Basophils Percent Auto 0.7 0 - 2 % [facility] NRBC Pct Auto 0.0 0.0 - 0.2 /100WBC [facility] Neutrophils Absolute Auto 5.5 2.0 - 8.3 x10*3/uL [facility] Imm Gran Abs Auto 0.04(H) 0.00 - 0.03 X10*3/uL [facility] Lymphocytes Absolute Auto 2.0 1.2 - 4.9 X10*3/uL [facility] Monocytes Absolute Auto 0.5 0.1 - 1.2 X10*3/uL [facility] Eosinophils Absolute Auto 0.4 0.0 - 0.4 X10*3/uL [facility] Basophils Absolute Auto 0.1 0.0 - 0.2 X10*3/uL [facility] NRBC Abs Auto 0.000 0.0 - 0.012 X10*3/uL [facility] Blood Venous blood specimen / Unknown 06/21/2024 4:15 PM EST 06/21/2024 6:11 PM EST us Nancy Munoz MD LAB BLOOD ORDERABLES Final Result [facility] [address] [place] [phone] documented in this encounter Visit Diagnoses Diagnosis URI, acute- Primary Acute upper respiratory infections of unspecified site Primary hypertension Unspecified essential hypertension Dietary counseling Dietary surveillance and counseling Exercise counseling Class 2 severe obesity due to excess calories with serious comorbidity and body mass index (BMI) of 36.0 to 36.9 in adult (CMS/HCC) documented in this encounter Care Teams Manager Career Relationship Specialty Start Date End Date Nancy Munoz MD [address] [place] [phone] PCP - General Internal Medicine 12/09/11 documented as of this encounter
--- OUTSIDE RECORDS SUMMARY | 2024-06-21 19:19 | XMS_ITS | Encounter Summary ---
Author Organization [employer] Address [address] [facility] [address], [place] [address] Care Team Providers Care Photo Colorer Name Role Phone Nancy Munoz MD Primary Care Provider [phone] Reason for Visit * Reason Comments Med Refill Encounter Details Date Type Department Care Team (Late st Contact Info) Description 06/06/2024 Refill [facility] [address] [place], [place] [phone] Nancy Munoz MD [address] [place] [address] Primary hypertension Social History Tobacco Use Types Packs/Day Years [...] documented as of this encounter Visit Diagnoses Diagnosis Primary hypertension Unspecified essential hypertension documented in this encounter Care Teams Photo Colorer Relationship Specialty Start Date End Date Nancy Munoz MD [address] [place] [address] PCP - General Internal Medicine 12/09/11 documented as of this encounter
--- OUTSIDE RECORDS SUMMARY | 2024-06-21 19:19 | XMS_ITS | Encounter Summary ---
Author Organization [employer] Address [address] [facility] [address] [address] Care Team Providers Care Pipe Jeeper Name Role Phone Nancy Munoz MD Primary Care Provider [phone] Encounter Details Date Type Department Care Team ([facility] st Contact Info) Description 01/21/2023 Orders Only [facility] [address] [place], [place] [phone] Nancy Munoz MD [address] [place] [address] Hypoglycemia (Primary Dx) Social History Tobacco Use Types Packs/Day Years [...] as of this encounter Visit Diagnoses Diagnosis Hypoglycemia- Primary Hypoglycemia, unspecified documented in this encounter Care Teams Pipe Jeeper Relationship Specialty Start Date End Date Nancy Munoz MD [address] [place] [address] PCP - General Internal Medicine 12/09/11 documented as of this encounter
--- OUTSIDE RECORDS SUMMARY | 2024-06-21 19:19 | XMS_ITS | Encounter Summary ---
Author Organization [employer] Address [address] [place] [address] Care Team Providers Care Assistant Professor Of English Name Role Phone Nancy Munoz MD Primary Care Provider [phone] Reason for Visit * Reason Comments Med Change Request Encounter Details Date Type Department Care Team ([facility] st Contact Info) Description 04/12/2022 Refill [facility] [address] [place] [address] Nancy Munoz MD [address] [place] [address] Seasonal allergies Social History Tobacco Use Types Packs/Day Years [...] as of this encounter Visit Diagnoses Diagnosis Seasonal allergies Allergic rhinitis, cause unspecified documented in this encounter Care Teams Assistant Professor Of English Relationship Specialty Start Date End Date Nancy Munoz MD [address] [place] [address] PCP - General Internal Medicine 12/09/11 documented as of this encounter
--- OUTSIDE RECORDS SUMMARY | 2024-06-21 19:19 | XMS_ITS | Encounter Summary ---
Author Organization [employer] Address [address] [place] [address] Care Team Providers Care Undergraduate Advisor Name Role Phone Nancy Munoz MD Primary Care Provider [phone] Reason for Visit * Reason Onset Date Comments Appointment Request 08/18/2022 Encounter Details Date Type Department Care Team ([facility] st Contact Info) Description 08/18/2022 Telephone [facility] [address] [place] [address] Nancy Munoz MD [address] [place] [address] Appointment Request Social History Tobacco Use Types Packs/Day Years Used Date Smoking Tobacco: Every Day Cigarettes 0.5 30 Smokeless Tobacco: Never Comments:Pt is currently cut ting down to about 5 cig a day. Comments Unknown Sex and Gender Information Value Date Recorded Sex Assigned at Female 02/22/2022 10:21 AM EDT Legal Sex Female 10:21 AM EDT Gender Identity Female 02/22/2022 10:21 AM EDT Sexual Orientation Straight 02/22/2022 10 :21 AM EDT documented as of this encounter Miscellaneous Notes * Telephone Encounter - Bree Wade - 08/18/2022 1:09 PM EDT Tc from pt requesting an appt with her OBGYN to speak about some concerns she is having at the moment Please contact pt at [phone] documented in this encounter Plan of Treatment Not on file documented as of this encounter Visit Diagnoses Not on filedocumented in this encounter Care Teams Undergraduate Advisor Relationship Specialty Start Date End Date Nancy Munoz MD [address] [place] [phone] PCP - General Internal Medicine 12/09/11 documented as of this encounter
--- OUTSIDE RECORDS SUMMARY | 2024-06-21 19:19 | XMS_ITS | Encounter Summary ---
Author Organization [employer] Address [address] [facility] 7 [place] [address] Care Team Providers Care College Director Name Role Phone Nancy Munoz MD Primary Care Provider [phone] Encounter Details Date Type Department Care Team (Latest Contact Info) Description 05/23/2024 Travel Social History Tobacco Use Types Packs/Day Years [...] on filedocumented in this encounter Care Teams College Director Relationship Specialty Start Date End Date Nancy Munoz MD [address] [place] [address] PCP - General Internal Medicine 12/09/11 documented as of this encounter
--- OUTSIDE RECORDS SUMMARY | 2024-06-21 19:19 | XMS_ITS | Encounter Summary ---
Author Organization [employer] Address [address] [place] [address] [place], [place] [address] Care Team Providers Care Concrete Smoother Name Role Phone Nancy Munoz MD Primary Care Provider [phone] Reason for Visit * Reason Comments Med Change Request Encounter Details Date Type Department Care Team (Late st Contact Info) Description 05/24/2022 Refill [facility] MEDICINE [address] [place], [place] [phone] Nancy Munoz MD [address] [place] [address] Primary hypertension Social History Tobacco Use Types [...] hypertension documented in this encounter Care Teams Concrete Smoother Relationship Specialty Start Date End Date Nancy Munoz MD [address] [place] [address] PCP - General Internal Medicine 12/09/11 documented as of this encounter
--- OUTSIDE RECORDS SUMMARY | 2024-06-21 19:19 | XMS_ITS | Encounter Summary ---
Author Organization [employer] Address [address] [facility] 7 [place] [address] Care Team Providers Care Paper Mill Manager Name Role Phone Nancy Munoz MD Primary Care Provider [phone] Reason for Visit * Reason Onset Date Comments Nurse Triage 05/23/2024 Encounter Details Date Type Department Care Team ([facility] st Contact Info) Description 05/23/2024 Telephone [facility] MEDICINE [address] [place] [address] Nancy Munoz MD [address] [place] [address] Nurse Triage Social History Tobacco Use Types Packs/Day Years [...] encounter Miscellaneous Notes * Telephone Encounter - Jenna Charles RN - 05/23/2024 9:27 AM EST Triage call Pt reports right ear with pain, swollen gland behind right ear and muffled hearing. Pt has had a cold for last 2 days and nasal congestion. Pt also reports infected tooth on the right side of jaw. Neg for fever. Pt is given ASK apt in [facility] today at 220pm. Home care is reviewed . Insurance is verified as active prior to booking. Protocol Used: Earache (Adult) Protocol-Based Disposition: See in Office or Video Visit Today or Tomorrow Positive Triage Question: * All other earaches (Exceptions: Brief ear pain lasting < 1 hour, and earache occurring during air travel.) * All higher-acuity triage questions were negative Care Advice Discussed: * Reassurance and Education - Earache * Pain Medicines * Cold or Heat Pack for Ear Pain * Reasons To Call Back - Severe pain lasts over 2 hours after pain medicine - You become worse * Telephone Encounter - Araseli Guzman - 05/23/2024 8:50 AM EST Symptom: Earache (Right) Outcome: Schedule a same-day appointment or talk to a nurse or provider today Reason: Caller denied all higher acuity questions The caller accepted this outcome. Please contact at [phone] documented in this encounter Plan of Treatment Not on file documented as of this encounter Visit Diagnoses Not on filedocumented in this encounter Care Teams Paper Mill Manager Relationship Specialty Start Date End Date Nancy Munoz MD [address] [place] [address] PCP - General Internal Medicine 12/09/11 documented as of this encounter
--- OUTSIDE RECORDS SUMMARY | 2024-06-21 19:19 | XMS_ITS | Encounter Summary ---
Author Organization [employer] Address [address] [address] Care Team Providers Care Study Lead Name Role Phone Nancy Munoz MD Primary Care Provider [phone] Reason for Visit * Reason Onset Date Comments Nurse Triage 05/30/2024 Encounter Details Date Type Department Care Team ([facility] st Contact Info) Description 05/30/2024 Telephone [facility] CHC MED & PEDS [address] [place], [place] [phone] Nancy Munoz MD [address] [place] [address] Nurse Triage Social History Tobacco Use Types [...] encounter Miscellaneous Notes * Telephone Encounter - Cris Munoz RN - 05/30/2024 10:42 AM EST Per chart review, pt seen on 05/23/24 for URI, given rx for guaiFENicine 600mg BID x 10 days and TYLENOL for pain relief PRN Q8H x 10 days. Call returned to iRta Escalante to triage below. Reports having new onset of wheezing at night when laying flat.. Pt having increased fatigue. Pt did not start mucinex as ordered. Pt denies any fever. Cough is dry. Pt did not take Rx as states was already taking mucinex at home OTC and no relief of sx. Per pt cough is worse after smoking a cigarette. Pt advised of need for re-evaluation. Advised [facility] or can call tomorrow morning for [facility] scheduling for [facility] as schedule not yet open for booking. Protocol Used: Cough (Adult) Protocol-Based Disposition: See in Office or Video Visit Today Video visit offer not recorded Positive Triage Question: * Severe coughing spells (e.g., whooping sound after coughing, vomiting after coughing) * All higher-acuity triage questions were negative Care Advice Discussed: * Reassurance and Education - Cough * Coughing Spells * Prevent Dehydration * Avoid Tobacco Smoke * Reasons To Call Back - Difficulty breathing - You become worse * Telephone Encounter - Chaya Carey - 05/30/2024 10:40 AM EST Symptom: Wheezing Outcome: Schedule a same-day appointment or talk to a nurse or provider today Reason: Caller denied all higher acuity questions The caller accepted this outcome. documented in this encounter Plan of Treatment Not on file documented as of this encounter Visit Diagnoses Not on filedocumented in this encounter Care Teams Study Lead Relationship Specialty Start Date End Date Nancy Munoz MD [address] [place] [address] PCP - General Internal Medicine 12/09/11 documented as of this encounter
--- OUTSIDE RECORDS SUMMARY | 2024-06-21 19:19 | XMS_ITS | Encounter Summary ---
Author Organization [employer] Address [address] [place] [address] Care Team Providers Care Bench Worker Apprentice Name Role Phone Nancy Munoz MD Primary Care Provider [phone] Reason for Referral * Imaging (Routine) - Closed Specialty Diagnoses / Procedures Referred By Cira esqueda Referred To Contact Diagnoses Pelvic pain Procedures US Pelvis Transvaginal Nancy Munoz MD [address] [place] [address] Phone: tel: fax: [facility] [address] [place] [address] Phone: tel: Referral ID Status Reason Start Date Expiration Date Visits Re quested Visits Authorized [id number] Closed 06/29/2022 12/26/2022 1 1 Reason for Visit * Reason Onset Date Comments Lab Orders 06/29/2022 Encounter Details Date Type Department Care Team (Late st Contact Info) Description 06/29/2022 Telephone [facility] MEDICINE [address] [place], [place] [phone] Nancy Munoz MD [address] [place] [address] Lab Orders Social History Tobacco Use Types [...] Orientation Straight 02/22/2022 10 :21 AM EDT COVID-19 Exposure Response Date Recorded In the last 10 days, have yo u been in contact with someone who was confirmed or suspected to have Coronavirus/COVID-19? No / Unsure 06/25/2022 3:08 PM EST documented as of this encounter Miscellaneous Notes * Telephone Encounter - Yvonne Monroy RN - 06/29/2022 2:19 PM EST Please see message below. Requesting an order for a US transvaginal. Please review and advise. . * Telephone Encounter - Sami Mckee - 06/29/2022 2:01 PM EST Tc from [facility] with [facility] requesting trans vaginal order with u/s pelvic complete. documented in this encounter Plan of Treatment Scheduled Orders Name Type Priority Associated Diagnoses Orde r Schedule US Pelvis Transvaginal Imaging Routine Pelvic pain Expected: 06/29/2022, Expires: 06/30/2023 documented as of this encounter Visit Diagnoses Diagnosis Pelvic pain- Primary documented in this encounter Care Teams Bench Worker Apprentice Relationship Specialty Start Date End Date Nancy Munoz MD [address] [place] [address] PCP - General Internal Medicine 12/09/11 documented as of this encounter
--- OUTSIDE RECORDS SUMMARY | 2024-06-21 19:19 | XMS_ITS | Encounter Summary ---
Author Organization [employer] Address [address] [place] [address] Care Team Providers Care Soda Flaker Name Role Phone Nancy Munoz MD Primary Care Provider [phone] Reason for Visit * Reason Comments Med Refill Encounter Details Date Type Department Care Team ([facility] st Contact Info) Description 06/18/2024 Refill [facility] CHC MED & PEDS [address] [place] [address] Nancy Munoz MD [address] [place] [address] Clavicle pain; Muscle ache; Right upper quadrant pain Social History Tobacco Use Types Packs/Day Years [...] as of this encounter Visit Diagnoses Diagnosis Clavicle pain Disorder of bone and cartilage, unspecified Muscle ache Unspecified myalgia and myositis Right upper quadrant pain Abdominal pain, right upper quadrant documented in this encounter Care Teams Soda Flaker Relationship Specialty Start Date End Date Nancy Munoz MD [address] [place] [address] PCP - General Internal Medicine 12/09/11 documented as of this encounter
--- OUTSIDE RECORDS SUMMARY | 2024-06-21 19:19 | XMS_ITS | Encounter Summary ---
Author Organization [employer] Address [address] [address] Care Team Providers Care Center Punch Operator Name Role Phone Nancy Munoz MD Primary Care Provider [phone] Reason for Visit * Reason Onset Date Comments Medication Question 06/21/2024 Encounter Details Date Type Department Care Team ([facility] Contact Info) Description 06/21/2024 Telephone [facility] CHC MED & PEDS [address] [place], [place] [phone] Nancy Munoz MD [address] [place] [address] Medication Question Social History Tobacco Use Types Packs/Day Years [...] encounter Miscellaneous Notes * Telephone Encounter - Adry Moreno - 06/21/2024 4:23 PM EST Pt walked in requesting an update on ozempic mentioned she spoke about it with PCP on visit in November 2023. documented in this encounter Plan of Treatment Not on file documented as of this encounter Visit Diagnoses Not on filedocumented in this encounter Care Teams Center Punch Operator Relationship Specialty Start Date End Date Nancy Munoz MD [address] [place] [address] PCP - General Internal Medicine 12/09/11 documented as of this encounter
== END 2024-06-21 16:15 | disposition home or self-care (01) ==
LOC: HO.CHCLDS 16:14
PROVIDERS: Visit Provider Internal Medicine
DX: I10 Essential (primary) hypertension (principal)
CPT/HCPCS: 36415; 80053; 80061; 84443; 85025

== ENCOUNTER 2024-07-03 09:45 | Outpatient (REF) | payer MEDICAID, SELFPAY ==
--- OUTSIDE RECORDS SUMMARY | 2024-07-03 11:04 | XMS_ITS | Encounter Summary ---
Author Organization [employer] Address [address] [place] [address] Care Team Providers Care Smelter Charger Name Role Phone Nancy Munoz MD Primary Care Provider [phone] Reason for Visit * Reason Comments Med Change Request Encounter Details Date Type Department Care Team ([facility] Contact Info) Description 04/12/2022 Refill [facility] CHC MED & PEDS [address] [place] [address] Nancy Munoz MD [address] [place] [address] Seasonal allergies Social History Tobacco Use Types Packs/Day Years Used Date Smoking Tobacco: Never Assessed Comments Unknown Sex and Gender Information Value Date Recorded Sex Assigned at Female 02/22/2022 10:21 AM EDT Legal Sex Female 10:21 AM EDT Gender Identity Female 02/22/2022 10:21 AM EDT Sexual Orientation Straight 02/22/2022 10 :21 AM EDT documented as of this encounter Plan of Treatment Upcoming Encounters Date Type Department Care Team ([facility] Contact Info) Description 07/05/2024 1:00 PM EDT Office Visit [facility] CHC MED & PEDS [address] [place] [address] Nancy Munoz MD [address] [place] [address] documented as of this encounter Visit Diagnoses Diagnosis Seasonal allergies Allergic rhinitis, cause unspecified documented in this encounter Care Teams Smelter Charger Relationship Specialty Start Date End Date Nancy Munoz MD [address] [place] [address] PCP - General Internal Medicine 12/09/11 documented as of this encounter
--- OUTSIDE RECORDS SUMMARY | 2024-07-03 11:04 | XMS_ITS | Clinical Summary ---
Author Organization [facility] Address [address] [place] [address] Care Team Providers Care Senior Clinical Consultant Name Role Phone Yvonne Munoz MD Primary Care Provider [phone] Surgical History Surgery Date Site/Laterality Comments CHOLECYSTECTOMY 2006 PROCEDURE: HISTORICAL CHOLECYSTECTOMY Medical History Medical History Date Comments Seasonal allergies DX:Seasonal a llergies Family History Relation Name Status Comments Father Alive OR in 40s Maternal Grandfather Lung Ca Mother [...] Procedure Name Priority Date/Time Associated Diagnosis Comments [facility] SCREEN[facility] DIGITAL Routine 09/20/2018 5:09 PM EDT Encounter for screening mammogram for malignant neoplasm of breast from Last 3 Months or Most Recently Relevant to Health Maintenance Results * [facility] SCRE[facility] D[facility] (09/20/2018 5:09 PM EDT) Anatomical Region Laterality Modality Mammography 09/20/2018 10:4 9 AM EDT Narrative 09/20/2018 5:09 PM EDT [facility] Diagnostic Imaging Department [address] [place] [address] Patient: ??RITA JERONIMO ?/Age/Sex: 1975 - 43 - Unit#: ??[id number] ? Location/Status: ??SPDIMAM/REG CLI ? Mnemonic/Ordering Site: ??DIGSC/SPMAM Ordering Physician: ??YVONNE MUNOZ MD [facility] Screening Digital - 09/20/18 - 1123 EXAM: [facility] Screening Digital EXAM DATE AND TIME: 09/20/2018 11:24 AM HISTORY: ??Screening. Baseline exam. Mother had breast carcinoma age 55. COMPARISON: ??No comparison studies. TECHNIQUE: CC and MLO views of both breasts were obtained using full field digital mammography. Bilateral digital breast tomosynthesis was performed in the MLO projection. Computer aided detection with the [employer] 7.2-H was employed. TISSUE DENSITY: b. There [...] Routine screening mammogram BILATERAL in 1 year. [address], [address]33 3341F, 7025F Dictating Physician: ??SELENA CARVALHO MD Electronically Signed by: ??SELENA CARVALHO MD Dic Date/Time: ??09/20/181708 Sign date/Time: ??09/20/181708 Procedure Note Selena Carvalho - 04/13/2022 [facility] Diagnostic Imaging Department [address] [place] [address] Patient: RITA JERONIMO /Age/Sex: 1975 - 43 - F Unit#: [id number] Location/Status: SPDIMAM/REG CLI Mnemonic/Ordering Site: [facility] Ordering Physician: YVONNE MUNOZ MD [facility] Screening Digital - 09/20/18 - 1122 EXAM: [facility] Screening Digital EXAM DATE AND TIME: 09/20/2018 11:24 AM HISTORY: Screening. Baseline exam. Mother had breast carcinoma age 55. COMPARISON: No comparison studies. TECHNIQUE: CC and MLO views of both breasts were obtained using fullfield digital mammography. Bilateral digital breast tomosynthesis was performedin the MLO projection. Computer aided detection with the [employer] employed. TISSUE DENSITY: b. There are scattered [...] Routine screening mammogram BILATERAL in 1 year. [address], 43227 3341F, 7025F Dictating Physician: SELENA CARVALHO MD Electronically Signed by: SELENA CARVALHO MD Dic Date/Time: 09/20/181708 Sign date/Time: 09/20/181708 Yvonne Munoz MD IMG BI PROCEDURES Final R esult from Last 3 Months or Most Recently Relevant to Health Maintenance Care Teams Senior Clinical Consultant Relationship Specialty Start Date End Date Yvonne Munoz MD [address] [place] [address] PCP - General 07/12/17
--- OUTSIDE RECORDS SUMMARY | 2024-07-03 11:04 | XMS_ITS | Encounter Summary ---
Author Organization [employer] Address [address] [place] [address] Care Team Providers Care Coffee Roaster Helper Name Role Phone Nancy Munoz MD Primary Care Provider [phone] Reason for Referral * Imaging (Routine) - Closed Specialty Diagnoses / Procedures Referred By Cira esqueda Referred To Contact Diagnoses Pelvic pain Procedures US Pelvis Transvaginal Nancy Munoz MD [address] [place] [address] Phone: tel: fax: [facility] [address] [place] [address] Phone: tel: Referral ID Status Reason Start Date Expiration Date Visits Re quested Visits Authorized [id number] Closed 06/29/2022 12/26/2022 1 1 Reason for Visit * Reason Onset Date Comments Lab Orders 06/29/2022 Encounter Details Date Type Department Care Team (Late st Contact Info) Description 06/29/2022 Telephone [facility] MEDICINE [address] [place], [place] [phone] Nancy Munoz MD [address] [place] [address] Lab Orders Social History Tobacco [...] - 06/29/2022 2:01 PM EST Tc from [facility] requesting trans vaginal order with u/s pelvic complete. documented in this encounter Plan of Treatment Upcoming Encounters Date Type Department Care Team ([facility] st Contact Info) Description 07/05/2024 1:00 PM EDT Office Visit [facility] MED & PEDS [address] [place] [address] Nancy Munoz MD [address] [place] [address] Scheduled Orders Name Type Priority Associated Diagnoses Orde r Schedule US Pelvis Transvaginal Imaging Routine Pelvic pain Expected: 06/29/2022, Expires: 06/30/2023 documented as of this encounter Visit Diagnoses Diagnosis Pelvic pain- Primary documented in this encounter Care Teams Coffee Roaster Helper Relationship Specialty Start Date End Date Nancy Munoz MD [address] [place] [address] PCP - General Internal Medicine 12/09/11 documented as of this encounter
--- OUTSIDE RECORDS SUMMARY | 2024-07-03 11:04 | XMS_ITS | Encounter Summary ---
Author Organization [employer] Address [address] [place] [address] Care Team Providers Care Surgery Assistant Name Role Phone Nancy Munoz MD Primary Care Provider [phone] Reason for Visit * Reason Onset Date Comments Medication Question 06/21/2024 Encounter Details Date Type Department Care Team ([facility] st Contact Info) Description 06/21/2024 Telephone [facility] CHC MED & PEDS [address] [place], [place] [phone] Nancy Munoz MD [address] [place] [address] Medication Question Social History Tobacco Use Types [...] encounter Miscellaneous Notes * Telephone Encounter - Aurora Gamez RN - 06/22/2024 1:47 PM EST Appointment scheduled 07/06/24 to discuss weight loss medications. Patient agrees with plan. * Telephone Encounter - Aurora Gamez RN - 06/22/2024 11:26 AM EST TC to patient. She is interested in weight loss medication. States she and provider had discussed medication (Ozempic) back in November of 2023. There is a note about weight loss medications in the visit note. Routing to provider to for review. * Telephone Encounter - Adry Moreno - 06/21/2024 4:23 PM EST Pt walked in requesting an update on ozempic mentioned she spoke about it with PCP on visit in November 2023. documented in this encounter Plan of Treatment Upcoming Encounters Date Type Department Care Team (Late st Contact Info) Description 07/05/2024 1:00 PM EDT Office Visit [facility] MED & PEDS [address] [place] [address] Nancy Munoz MD [address] [place] [address] documented as of this encounter Visit Diagnoses Not on filedocumented in this encounter Care Teams Surgery Assistant Relationship Specialty Start Date End Date Nancy Munoz MD [address] [place] [address] PCP - General Internal Medicine 12/09/11 documented as of this encounter
--- OUTSIDE RECORDS SUMMARY | 2024-07-03 11:04 | XMS_ITS | Encounter Summary ---
Author Organization [employer] Address [address] [place] [address] Care Team Providers Care Gis Analyst Name Role Phone Nancy Munoz MD Primary Care Provider [phone] Reason for Visit * Reason Comments Med Refill Encounter Details Date Type Department Care Team ([facility] Contact Info) Description 06/18/2024 Refill [facility] MED & PEDS [address] [place] [address] Nancy Munoz MD [address] [place] [address] Clavicle pain; Muscle ache; Right upper quadrant [...] Upcoming Encounters Date Type Department Care Team ([facility] Contact Info) Description 07/05/2024 1:00 PM EDT Office Visit [facility] MED & PEDS [address] [place] [address] Nancy Munoz MD [address] [place] [address] documented as of this encounter Visit Diagnoses Diagnosis Clavicle pain Disorder of bone and cartilage, unspecified Muscle ache Unspecified myalgia and myositis Right upper quadrant pain Abdominal pain, right upper quadrant documented in this encounter Care Teams Gis Analyst Relationship Specialty Start Date End Date Nancy Munoz MD [address] [place] [address] PCP - General Internal Medicine 12/09/11 documented as of this encounter
--- OUTSIDE RECORDS SUMMARY | 2024-07-03 11:04 | XMS_ITS | Clinical Summary ---
Author Organization [employer] Address 75 [facility] 7 [place] [address] Care Team Providers Care Bus And Rail Operator Name Role Phone Nancy Munoz MD Primary Care Provider [phone] Allergies Active Allergy Reactions Criticality Noted Date [...] 90 tablet 1 11/08/19 24 025 Discontinued Diclofenac Sodium 1 % gelIndications:C lavicle pain,Muscle ache,Right upper quadrant pain TO APPLY TO THE AFFECTED AREA 3 TIMES A DAY 100 g 1 04/16/20 24 025 Discontinued Active Problems Problem Noted Date Diagnosed Date Rhinitis, allergic 05/13/2022 Gastroesophageal reflux disease in pediatric pat ient 09/10/2021 Weight increasing 09/10/2021 Chronic back pain 02/25/2021 Varicose veins of both lower extremities 021 Hypertensive disorder 08/19/2018 Depressive disorder 09/25/2011 Encounters Date Type Department Care Team Description 06/22/2024 Telephone [facility] PEDS [address] [place] [address] Nancy Munoz MD Results 06/22/2024 Orders Only [facility] [address] [place] [address] Nancy Munoz MD Transaminitis (Primary Dx); Macrocytosis without anemia 06/21/2024 Telephone [facility] [address] [place] [address] Nancy Munoz MD Medication Question 06/18/2024 Refill [facility] [address] [place] [address] Nancy Munoz MD Clavicle pain; Muscle ache; Right upper quadrant pain 06/06/2024 Refill [facility] [address] [place] [address] Nancy Munoz MD Primary hypertension 05/30/2024 Telephone [facility] [address] [place] [address] Nancy Munoz MD Nurse Triage 05/23/2024 2:20 PM EST Office Visit [facility] [address] [place] [address] Nancy Munoz MD URI, acute (Primary Dx); Primary hypertension; Dietary counseling; Exercise counseling; Class 2 severe obesity due to excess calories with serious comorbidity and body mass index (BMI) of 36.0 to 36.9 in adult ([facility]) 05/23/2024 Travel 05/23/2024 Telephone [facility] [address] [place] [address] Nancy Munoz MD Nurse Triage 04/16/2024 Refill [facility] [address] [place] [address] Nancy Munoz MD Clavicle pain; Muscle ache; [...] 05/23/2024 2:25 PM EST Plan of Treatment Upcoming Encounters Date Type Department Care Team (Late st Contact Info) Description 07/05/2024 1:00 PM EDT Office Visit [facility] [address] [place] [address] Nancy uMnoz MD [address] [place] [address] Health Maintenance Due Date Last Done Comments [...] 1993 Pap Smear 04/03/2023 04/03/2020 COVID-19 Vaccine (1 - season) 2023 Influenza Vaccine (#1) 2023 0, [...] Free T4 0.81 0.32 - 4.0 uIU/mL [facility] Blood Venous blood specimen / Unknown 06/21/2024 4:15 PM EST 06/21/2024 6:11 PM EST us Nancy Munoz MD LAB BLOOD ORDERABLES Final Result [facility] [address] [place] [phone] * (ABNORMAL) CBC auto differential (06/21/2024 4:15 PM EST) White Blood Count 8.6 4.8 - 10.8 X10*3/uL [facility] Red Blood Count 4.19(L) 4.20 - 5.50 X10*6/uL [facility] Hemoglobin 14.4 12.0 - 16.0 g/dl [facility] Hematocrit 41.2 37.0 - 47.0 % [facility] Mean Corpuscular Volume 98.3(H) 80.0 - 98.0 fL [facility] Mean Corpuscular Hemoglobin 34.4(H) 27.0 - 33.0 pg [facility] Mean Corpuscular HGB Conc 35.0 31.0 - 35.0 g/dl [facility] Red Cell Distribution Width 13.1 11.0 - 16.0 % [facility] Platelet Count 220 160 - 400 X10*3/uL [facility] Mean Platelet Volume 10.6 9.4 - 12.3 fL [facility] Neutrophils Percent Auto 64.0 45 - 73 % [facility] Imm Gran Pct Auto 0.5(H) 0.0 - 0.4 % [facility] Lymphocytes Percent Auto 23.8 20 - 40 % [facility] Monocytes Percent Auto 6.3 2 - 11 % [facility] Eosinophils Percent Auto 4.7(H) 0 - 4 % [facility] Basophils Percent Auto 0.7 0 - 2 % [facility] NRBC Pct Auto 0.0 0.0 - 0.2 /100WBC [facility] Neutrophils Absolute Auto 5.5 2.0 - 8.3 x10*3/uL [facility] Imm Gran Abs Auto 0.04(H) 0.00 - 0.03 X10*3/uL [facility] Lymphocytes Absolute Auto 2.0 1.2 - 4.9 X10*3/uL [facility] Monocytes Absolute Auto 0.5 0.1 - 1.2 X10*3/uL [facility] Eosinophils Absolute Auto 0.4 0.0 - 0.4 X10*3/uL [facility] Basophils Absolute Auto 0.1 0.0 - 0.2 X10*3/uL [facility] NRBC Abs Auto 0.000 0.0 - 0.012 X10*3/uL [facility] Blood Venous blood specimen / Unknown 06/21/2024 4:15 PM EST 06/21/2024 6:11 PM EST Nancy Munoz MD LAB BLOOD ORDERABLES Final Result [facility] [address] [place] [address] [phone] * (ABNORMAL) Lipid Panel, Standard (06/21/2024 4:15 PM EST) Triglycerides 374(H) <150 mg/dL [facility] Comment:Desirable Triglyceri de: less than 150 mg/dLBorderline High Triglyceride 150-199 mg/dLHigh Triglyceride: 200-499 mg/dLVery High Triglyceride: greater than or equal to 5OO mg/dL Cholesterol 220(H) <200 mg/dL [facility] Comment:Desirable Cholestero l: less than 200 mg/dLBorderline High Cholesterol: 200-239 mg/dLHigh Cholesterol: greater than 239 mg/dL LDL Cholesterol Calculated 106(H) <100 mg/dL [facility] Comment:Desirable LDL: less than 100 mg/dLNear Optimal/Above Optimal LDL: 110- 129 mg/dLBorderline High LDL: 130-159 mg/dLHigh LDL: 160-189 mg/dLVery High LDL: greater than or equal to 190 mg/dL HDL Cholesterol 40(L) >40 mg/dL [facility] Comment:Desirable HDL: great er than 40 mg/dL Note: This HDL assay may give artificially low results in patients with liver disease. Blood Venous blood specimen / Unknown 06/21/2024 4:15 PM EST 06/21/2024 6:11 PM EST Nancy Munoz MD LAB BLOOD ORDERABLES Final Result [facility] [address] [place] [phone] [phone] * (ABNORMAL) Comprehensive Metabolic Panel (06/21/2024 4:15 PM EST) Sodium 139 135 - 145 mmol/L [facility] Potassium 3.5 3.3 - 5.1 mmol/L [facility] Chloride 106 96 - 108 mmol/L [facility] Carbon Dioxide 25 22 - 29 mmol/L [facility] Anion Gap 12 12 - 20 [facility] Urea Nitrogen (BUN) 17(H) 9 - 16 mg/dL [facility] Creatinine, Serum 0.83 0.5 - 1.4 mg/dL [facility] Estimated Glomerular Filt Rate >60 [facility] Comment:Chronic Kidney Disea se: Estimated GFR < 60 mL/min/[id number] Kidney Disease: Estimated GFR < 15 mL/min/1.73m2 Glucose 97 60 - 115 mg/dL [facility] Calcium 9.4 8.4 - 10.2 mg/dL [facility] Bilirubin, Total 0.3 0.0 - 1.0 mg/dL [facility] Aspartate Amino Transferase 55(H) 5 - 31 U/L [facility] Alanine Aminotransferase 39(H) 0 - 31 U/L [facility] Total Protein 7.5 6.5 - 8.0 g/dL [facility] Albumin Level 4.1 3.5 - 5.0 g/dL [facility] Alkaline Phosphatase 76 39 - 117 U/L [facility] Blood Venous blood specimen / Unknown 06/21/2024 4:15 PM EST 06/21/2024 6:11 PM EST Nancy Munoz MD LAB BLOOD ORDERABLES Final Result Performing Organization Address City/State/[facility] Co de Phone Number [facility] [address] [place] [phone] * Mammography (09/08/2022) Mammogram performed Anatomical Region Laterality Modality Other Historical Provider HEALTH MAINTENANCE Final Result * HEPATITIS C AB W/REFL TO HCV RNA, QN, PCR (04/03/2020 12:02 PM EST) HEPATITIS C ANTIBODY NON-REACT WILLIAM NON-REACT WILLIAM [facility] INDEX 0.03 <1.00 [facility] Comment: ?? HCV antibody was non-reactive. There is no laboratory ?? evidence of HCV infection. ?? In most cases, no further action is required. However, if recent HCV exposure is suspected, a test for HCV RNA (test code 43820) is suggested. ?? For additional information please refer to [email or web address] [email or web address]/CIO74w7 (This link is being provided for informational/ educational purposes only.) ?? 04/03/2020 12:0 2 PM EST [facility] HISTORICAL/NON ORDERABLE LABS Final Result Performing Organization Address [facility] Phone Number [facility] [address] [place] [address], * HIV 1/2 ANTIGEN/ANTIBODY,FOURTH GENERATION W/RFL (04/03/2020 12:02 PM EST) [facility] HIV-1/2 ANTIGEN AND ANTIBODIES, 4TH GENERATION W/ REFLEX NON-REACT WILLIAM NON-REACT WILLIAM [facility] Comment: HIV-1 antigen and HIV-1/HIV-2 [...] ? For additional information please refer to [email or web address] [email or web address]/SSY792 (This link is being provided for informational/ educational purposes only.) ? The performance of this assay has not been clinically validated in patients less than 2 years old. ?? 04/03/2020 12:0 2 PM EST Ingrid Boyd [facility] LAB BLOOD ORDERABLES Mary l Result Performing Organization Address [facility] Phone Number [facility] [address] [place] [address], [place] * THINPREP PAP (04/03/2020 11:10 AM EST) Pathologist [facility] Clinical Information: None given [facility] COMMENT SEE COMMENT [facility]OUND[facility] ON [...] historic and ?? current clinical information. ?? Deburring And Tooling Machine Operator : SEE COMMENT [facility] Comment: MSM, CT(ASCP) CT screening location: [address] ??[phone] Infection Shift in vaginal shereen suggestive of bacterial vaginosis. [facility] Interpretation/R esult: Negative for intraepithelial lesion or malignancy. [facility] LMP: NONE GIVEN [facility] Prev. BX: NONE GIVEN [facility] Prev. PAP: NONE GIVEN [facility] SOURCE: None given [facility] Statement Of Adequacy: SEE COMMENT [facility] Comment: Satisfactory for evaluation. Endocervical/transformation zone component present. Age and/or menstrual status not provided 04/03/2020 11:1 0 AM EST Ingrid [facility] LAB PATHOLOGY ORDERABLES Final Result [facility] [address] * HPV mRNA E6/E7 (04/03/2020 11:10 AM EST) HPV nRNA E6/E7 Not Detected Not Detected [facility] Comment: This test was performed using the APTIMA HPV Assay ([employer] This assay detects E6/E7 viral messenger RNA (mRNA) from 14 high-risk HPV types (16,18,31,33,35,39,45,51,52,56,58,59,66,68). ?? The analytical performance characteristics of this assay have been determined by [employer]. The modifications have not been cleared or approved by the FDA. This assay has been validated pursuant to the CLIA regulations and is used for clinical purposes. 04/03/2020 11:1 0 AM EST us Ingrid [facility] LAB BLOOD ORDERABLES Mary lindy Result [facility] [address] [place] [address], from Last 3 Months or Most Recently Relevant to Health Maintenance Insurance [employer] C3 Care Teams Bus And Rail Operator Relationship Specialty Start Date End Date Nancy Munoz MD [address] [place] [address] PCP - General Internal Medicine 12/09/11
--- OUTSIDE RECORDS SUMMARY | 2024-07-03 11:04 | XMS_ITS | Encounter Summary ---
Author Organization [employer] Address [address] [address] Care Team Providers Care Long Winder Tender Name Role Phone Nancy Munoz MD Primary Care Provider [phone] Reason for Visit * Reason Onset Date Comments Lab Orders 04/29/2022 Encounter Details Date Type Department Care Team ([facility] st Contact Info) Description 04/29/2022 Telephone [facility] MED & PEDS [address] [place] [address] Nancy Munoz MD [address] [place] [address] Lab Orders Social History Tobacco Use Types [...] Miscellaneous Notes * Telephone Encounter - Yvonne oMnroy RN - 04/30/2022 11:58 AM EST Call to pt. States labs and mammogram were ordered during PE with PCP. Pt inquiring on status. Pt had PE on 02/24/22, which appears in the Next gen system. RN advised pt labs were ordered on 02/24/22. Advised the order appears in the system and informed pf of both the [facility] and [facility] [facility] lab hours. Pt verbalizes understanding. In regards to the mammogram order, advised will forward to [place] to follow up and return call to pt with status. Pt agrees. * Telephone Encounter - Miguelina Dimitry - 04/29/2022 11:37 AM EST Tc from patient calling on the status of mammogram order and lab orders. documented in this encounter Plan of Treatment Upcoming Encounters Date Type Department Care Team (Late st Contact Info) Description 07/05/2024 1:00 PM EDT Office Visit [facility] PEDS [address] [place] [address] Nancy Munoz MD [address] [place] [address] documented as of this encounter Visit Diagnoses Not on filedocumented in this encounter Care Teams Long Winder Tender Relationship Specialty Start Date End Date Nancy Munoz MD [address] [place] [address] PCP - General Internal Medicine 12/09/11 documented as of this encounter
--- OUTSIDE RECORDS SUMMARY | 2024-07-03 11:04 | XMS_ITS | Encounter Summary ---
Author Organization [employer] Address 75 [facility] [address], [place] [address] Care Team Providers Care Policy And Planning Manager Name Role Phone Nancy Munoz MD Primary Care Provider [phone] Encounter Details Date Type Department Care Team ([facility] Contact Info) Description 12/13/2022 Orders Only [facility] MED & PEDS [address] [place], [place] [phone] Teodoro Richardson MD [address] [place] [address] Social History Tobacco Use Types Packs/Day Years [...] Encounters Date Type Department Care Team (Late Contact Info) Description 07/05/2024 1:00 PM EDT Office Visit [facility] MED & PEDS [address] [place], [place] [phone] Nancy Munoz MD [address] [place] [address] documented as of this encounter Visit Diagnoses Not on filedocumented in this encounter Care Teams Policy And Planning Manager Relationship Specialty Start Date End Date Nancy Munoz MD [address] [place] [phone] PCP - General Internal Medicine 12/09/11 documented as of this encounter
--- OUTSIDE RECORDS SUMMARY | 2024-07-03 11:04 | XMS_ITS | Encounter Summary ---
Author Organization [employer] Address 75 [facility] [address], [place] [address] Care Team Providers Care Cane Pusher Name Role Phone Nancy Munoz MD Primary Care Provider [phone] Reason for Visit * Reason Comments Med Refill Encounter Details Date Type Department Care Team ([facility] Contact Info) Description 06/06/2024 Refill [facility] [address] [place], [place] [phone] Nancy Munoz MD [address] [place], [place] [phone] Primary hypertension Social History Tobacco Use Types [...] Upcoming Encounters Date Type Department Care Team ([facility] Contact Info) Description 07/05/2024 1:00 PM EDT Office Visit [facility] MED [facility] PEDS [address] [place], [place] [phone] Nancy Munoz MD [address] [place], [place] [phone] documented as of this encounter Visit Diagnoses Diagnosis Primary hypertension Unspecified essential hypertension documented in this encounter Care Teams Cane Pusher Relationship Specialty Start Date End Date Nancy Munoz MD [address] [place] [address] PCP - General Internal Medicine 12/09/11 documented as of this encounter
--- OUTSIDE RECORDS SUMMARY | 2024-07-03 11:04 | XMS_ITS | Encounter Summary ---
Author Organization [employer] Address [address] [place] [address] Care Team Providers Care Student Driving Instructor Name Role Phone Nacny Munoz MD Primary Care Provider [phone] Reason for Visit * Reason Comments Med Change Request Encounter Details Date Type Department Care Team ([facility] Contact Info) Description 05/24/2022 Refill [facility] [address] [place], [place] [phone] Nanyc Munoz MD [address] [place] [address] Primary hypertension Social History Tobacco Use Types [...] Description 07/05/2024 1:00 PM EDT Office Visit [facility] MED & PEDS [address] [place], [place] [phone] Nancy Munoz MD [address] [place] [address] documented as of this encounter Visit Diagnoses Diagnosis Primary hypertension Unspecified essential hypertension documented in this encounter Care Teams Student Driving Instructor Relationship Specialty Start Date End Date Nancy Munoz MD [address] [place] [address] PCP - General Internal Medicine 12/09/11 documented as of this encounter
--- OUTSIDE RECORDS SUMMARY | 2024-07-03 11:05 | XMS_ITS | Encounter Summary ---
Author Organization [employer] Address [address] [place] [address] [address], [place] [address] Care Team Providers Care Technical Operations Vice President Name Role Phone Nancy Munoz MD Primary Care Provider [phone] Reason for Referral * Imaging (Routine) - Authorized Specialty Diagnoses / Procedures Referred By Contac t Referred To Contact Radiology Diagnoses Transaminitis Procedures US Abdomen Complete Nancy Munoz MD [address] [place] [address] Phone: tel: fax: [facility] [address] [facility], [address] [place] [address] Phone: tel: fax: Referral ID Status Reason Start Date Expiration Date V isits Requested Visits Authorized [id number] Authorized 06/22/2024 06/22/2025 1 1 Encounter Details Date Type Department Care Team (Late st Contact Info) Description 06/22/2024 Orders Only [facility] MED[facility] [address] [place] [address] Nancy Munoz MD [address] [place], [place] [phone] Transaminitis (Primary Dx); Macrocytosis without anemia Social History Tobacco Use Types Packs/Day Years [...] Description 07/05/2024 1:00 PM EDT Office Visit [facility] MED [facility] PEDS [address] [place] [address] Nancy Munoz MD [address] [place] [address] Scheduled Orders Name Type Priority Associated Diagnoses Orde r Schedule US Abdomen Complete Imaging Routine Transaminitis Expected: 06/22/2024, Expires: 06/22/2025 Hepatitis A,B,C Profile Lab Routine Transaminitis Expected: 06/22/2024, Expires: 06/22/2025 Vitamin B12/Folate, Serum Panel Lab Routine Macrocytosis without anemia Expected: 06/22/2024, Expires: 06/22/2025 documented as of this encounter Visit Diagnoses Diagnosis Transaminitis- Primary Nonspecific elevation of levels of transaminase or lactic acid dehydrogenase (LDH) Macrocytosis without anemia Other specified diseases of blood and blood-forming organs documented in this encounter Care Teams Technical Operations Vice President Relationship Specialty Start Date End Date Nancy Munoz MD [address] [place] [address] PCP - General Internal Medicine 12/09/11 documented as of this encounter
--- OUTSIDE RECORDS SUMMARY | 2024-07-03 11:05 | XMS_ITS | Encounter Summary ---
Author Organization [employer] Address [address] [place] [address] Care Team Providers Care Silo Painter Name Role Phone Nancy Munoz MD Primary Care Provider [phone] Reason for Visit * Reason Onset Date Comments Appointment Request 08/18/2022 Encounter Details Date Type Department Care Team ([facility] st Contact Info) Description 08/18/2022 Telephone [facility] MED & PEDS [address] [place] [address] Nancy Munoz MD [address] [place] [address] Appointment Request Social History Tobacco Use Types [...] at the moment Please contact pt at [phone] documented in this encounter Plan of Treatment Upcoming Encounters Date Type Department Care Team (Late st Contact Info) Description 07/05/2024 1:00 PM EDT Office Visit [facility] MED & PEDS [address] [place] [address] Nancy Munoz MD [address] [place] [address] documented as of this encounter Visit Diagnoses Not on filedocumented in this encounter Care Teams Silo Painter Relationship Specialty Start Date End Date Nancy Munoz MD [address] [place] [address] PCP - General Internal Medicine 12/09/11 documented as of this encounter
--- OUTSIDE RECORDS SUMMARY | 2024-07-03 11:05 | XMS_ITS | Encounter Summary ---
Author Organization [employer] Address 75 [facility] 7 [place] [address] Care Team Providers Care Toppiece Cutter Name Role Phone Nancy Munoz MD Primary Care Provider [phone] Reason for Visit * Reason Onset Date Comments Nurse Triage 05/23/2024 Encounter Details Date Type Department Care Team ([facility] st Contact Info) Description 05/23/2024 Telephone [facility] MEDICINE [address] [place] [address] Nancy Munoz MD [address] [place] [address] Nurse Triage Social History Tobacco Use Types [...] caller accepted this outcome. Please contact at [phone] documented in this encounter Plan of Treatment Upcoming Encounters Date Type Department Care Team (Late st Contact Info) Description 07/05/2024 1:00 PM EDT Office Visit [facility] MED & PEDS [address] [place] [address] Nancy Munoz MD [address] [place] [address] documented as of this encounter Visit Diagnoses Not on filedocumented in this encounter Care Teams Toppiece Cutter Relationship Specialty Start Date End Date Nancy Munoz MD [address] [place] [address] PCP - General Internal Medicine 12/09/11 documented as of this encounter
--- OUTSIDE RECORDS SUMMARY | 2024-07-03 11:05 | XMS_ITS | Encounter Summary ---
Author Organization [employer] Address 75 [facility] [address] [place] [address] Care Team Providers Care Livestock Farmer Name Role Phone Nancy Munoz MD Primary Care Provider [phone] Encounter Details Date Type Department Care Team ([facility] Contact Info) Description 01/21/2023 Orders Only [facility] MED & PEDS [address] [place] [address] Nancy Munoz MD [address] [place] [address] Hypoglycemia (Primary Dx) Social History Tobacco Use [...] Description 07/05/2024 1:00 PM EDT Office Visit [facility] MED & PEDS [address] [place] [address] Nancy Munoz MD [address] [place] [address] documented as of this encounter Visit Diagnoses Diagnosis Hypoglycemia- Primary Hypoglycemia, unspecified documented in this encounter Care Teams Livestock Farmer Relationship Specialty Start Date End Date Nancy Munoz MD [address] [place] [address] PCP - General Internal Medicine 12/09/11 documented as of this encounter
--- OUTSIDE RECORDS SUMMARY | 2024-07-03 11:05 | XMS_ITS | Encounter Summary ---
Author Organization [employer] Address [address] [place] [address] Care Team Providers Care Skein Bleacher Name Role Phone Nancy Munoz MD Primary Care Provider [phone] Reason for Visit * Reason Onset Date Comments Results 06/22/2024 Encounter Details Date Type Department Care Team ([facility] st Contact Info) Description 06/22/[address] [facility] MED & PEDS [address], [place] [phone] Nancy Munoz MD [address] [place] [address] Results Social History Tobacco Use Types Packs/Day Years [...] encounter Miscellaneous Notes * Telephone Encounter - Wing Constanza RN - 06/22/2024 3:31 PM EST Tc to pt regarding lab results, labs ordered, and overall plan. Pt verbalized understanding and agreement with plan. ----- Message from Nancy Munoz MD sent at 06/22/2024 9:01 AM EST ----- Please call. Labs reviewed: 1) hypercholesterolemia. Low-cholesterol diet is recommended 2) elevated liver enzyme. Patient needs a hepatitis profile and an ultrasound of the abdomen 3) macrocytosis. Mild. Please advised against alcohol use. We will recheck vitamin B12 and folic acid. Last B12 level was at goal in 2022 ----- Message ----- From: Interface, Lab Results In Sent: 06/21/2024 6:30 PM EST To: Nancy Munoz MD documented in this encounter Plan of Treatment Upcoming Encounters Date Type Department Care Team (Late st Contact Info) Description 07/05/2024 1:00 PM EDT Office Visit [facility] MED & PEDS [address] [place] [address] Nancy Munoz MD [address] [place] [address] documented as of this encounter Visit Diagnoses Not on filedocumented in this encounter Care Teams Skein Bleacher Relationship Specialty Start Date End Date Nancy Munoz MD [address] [place] [id number] PCP - General Internal Medicine 12/09/11 documented as of this encounter
[2024-07-03 15:02] LABS: Alanine Aminotransferase 29 U/L (0-31); Alkaline Phosphatase 70 U/L (39-117); Aspartate Amino Transferase 26 U/L (5-31); Bilirubin Direct 0.2 mg/dL (0.0-0.5); Bilirubin Total 0.5 mg/dL (0.0-1.0); Lipase 17 U/L (8-78); Total Protein 7.2 g/dL (6.5-8.0)
[2024-07-03 15:15] LABS: Folate 8.3 ng/mL (> or = 4.0); Vitamin B12 899 pg/mL (200-900)
[2024-07-03 20:32] LABS: Amylase 46 U/L (28-100)
[2024-07-04 04:10] LABS: HBS Num1 240.74 mIU/mL (0-7.99); HBc Num1 0.08 S/CO (0.00-0.79); HBsAGNum1 0.26 S/CO (0.00-0.99); Hepatitis A Antibody IgM 0.16 Index (0-0.79); Hepatitis B Core Antibody Nonreactive (Nonreactive); Hepatitis B Surface Antigen Negative (Negative); ~HepC Num1 0.11 S/CO (0.00-0.79); ~Hepatitis A Antibody IgM Nonreactive (Nonreactive); ~Hepatitis B Surface Antibody REACTIVE (Nonreactive); ~Hepatitis C Antibody Nonreactive (Nonreactive)
== END 2024-07-03 09:46 | disposition home or self-care (01) ==
LOC: HO.CHCLDS 09:45
PROVIDERS: Visit Provider Internal Medicine
DX: R74.01 Elevation of levels of liver transaminase levels (principal); M79.10 Myalgia, unspecified site; R10.11 Right upper quadrant pain; D75.89 Other specified diseases of blood and blood-forming organs
CPT/HCPCS: 36415; 80076; 82150; 82607; 82746; 83690; 86704; 86706; 86709; 86803; 87340

== ENCOUNTER 2024-11-27 15:43 | Outpatient (REF) | payer MEDICAID, SELFPAY ==
--- OUTSIDE RECORDS SUMMARY | 2024-11-27 16:05 | XMS_ITS | Encounter Summary ---
Author Organization [employer] Address [address] [place] [address] Care Team Providers Care Tieing Machine Operator Name Role Phone Nancy Munoz MD Primary Care Provider [phone] Reason for Referral * Imaging (Routine) - Closed Specialty Diagnoses / Procedures Referred By Cira esqueda Referred To Contact Diagnoses Pelvic pain Procedures US Pelvis Transvaginal Nancy Munoz MD [address] [place] [address] Phone: tel: fax: [facility] [address] [place] [address] Phone: tel: Referral ID Status Reason Start Date Expiration Date Visits Re quested Visits Authorized [id number] Closed 06/29/2022 12/26/2022 1 1 Reason for Visit * Reason Onset Date Comments Lab Orders 06/29/2022 Encounter Details Date Type Department Care Team (Late st Contact Info) Description 06/29/2022 Telephone [facility] MEDICINE [address], [place] [phone] Nancy Munoz MD [address], [place] [phone] Lab Orders Social History Tobacco Use Types [...] - 06/29/2022 2:01 PM EST Tc from [facility] with [facility] U[facility]S requesting trans vaginal order with u/s pelvic complete. documented in this encounter Plan of Treatment Upcoming Encounters Date Type Department Care Team ([facility] st Contact Info) Description 12/04/2024 11:15 AM EDT Office Visit [facility] MED & PEDS [address] [place] [address] Nancy Munoz MD [address] [place] [address] 12/31/2024 10:00 AM EDT Office Visit [facility] PED[facility] [address] [place] [address] Nancy Munoz MD [address] [place] [address] Scheduled Orders Name Type Priority Associated Diagnoses Orde r Schedule US Pelvis Transvaginal Imaging Routine Pelvic pain Expected: 06/29/2022, Expires: 06/30/2023 documented as of this encounter Visit Diagnoses Diagnosis Pelvic pain- Primary documented in this encounter Care Teams Tieing Machine Operator Relationship Specialty Start Date End Date Nancy Munoz MD [address] [place] [phone] PCP - General Internal Medicine 12/09/11 documented as of this encounter
--- OUTSIDE RECORDS SUMMARY | 2024-11-27 16:05 | XMS_ITS | Clinical Summary ---
Author Organization [facility] Address [address] [place] [address] Phone Care Team Providers Care Systems Designer Name Role Phone Yvonne Munoz MD Primary Care Provider [phone] Allergies Active Allergy Reactions Criticality Noted Date Comments Clindamycin Hives 11/12/2024 Cephalexin Angioedema High 11/12/2024 Medications No known medications Encounters Date Type Department Care Team Description 11/12/2024 10:56 PM EDT - 11/13/2024 2:15 AM EDT Emergency [facility] Emergency [address] [place] [address] Pedro Pablo Pelayo MD Perineal pain (Primary Dx) Discharge Disposition: Home or Self Care from Last 3 Months Surgical History Surgery Date Site/Laterality Comments CHOLECYSTECTOMY 2006 PROCEDURE: HISTORICAL CHOLECYSTECTOMY Medical History Medical History Date Comments Seasonal allergies DX:Seasonal a llergies Hypertension Family History Relation Name Status Comments Father Alive [place] in 40s Maternal Grandfather Lung Ca Mother [...] Sexual Orientation Not on file Obstetrics History Last Filed Vital Signs Vital Sign Reading Time Taken Comments Blood Pressure 127/83 11/13/2024 1:59 AM EDT Pulse 66 11/13/2024 1:59 AM EDT Temperature 36.5 C (97.7 F) 11/13/2024 1:59 AM EDT Respiratory Rate 16 11/13/2024 1:59 AM EDT Oxygen Saturation 97% 11/13/2024 1:59 AM EDT Inhaled Oxygen Concentration - - Weight 86.2 kg (190 lb) 11/12/2024 6:12 PM EDT Height 157.5 cm (5' 2 ) 11/12/2024 6:12 PM EDT Body Mass Index 34.75 11/12/2024 6:12 PM EDT Plan of Treatment Health Maintenance Due Date Last Done Comments Hepatitis B Vaccines (1 of 3 - 19+ 3-dose series) 1993 Pneumococcal Vaccine: 50+ Years (1 of 2 - PCV) 1993 Cervical Cancer Screening: Pap Smear 1995 Breast Cancer Screening 09/20/2020 09/20/2018 Colorectal Cancer Screening: Colonoscopy 05/24/2023 Hepatitis C Screening 05/24/2023 Social Influencers of Health Screening 05/24/2023 COVID-19 Vaccine ( season) 2023 Depression Screening 04/25/2024 Influenza Vaccine (#1) 2024 0, 01/12/2019, 01/30/2018, Additional history exists Hypertension/CHF/CAD Annual BMP Blood Test 11/12/2025 11/12/2024 DTaP,Tdap,and Td Vaccines (2 - Td or Tdap) 12/30/2025 12/31/2015 Cholesterol Screening (Lipid Panel) 06/21/2029 06/21/2024 HIV Screening Completed 04/03/2020 Zoster Vaccines Completed 09/04/2024, 07/05/2024 HIB Vaccines Aged Out No longer eligi [...] age to complete this topic Meningococcal B Vaccine Aged Out No l onger eligible based on patient's age to complete this topic RSV Immunization Patients Under 20 months Aged Out No longer eligible based on patient's age to complete this topic Varicella Vaccines Aged Out No longer eligible based on patient's age to complete this topic Procedures Procedure Name Priority Date/Time Associated Diagnosis Comments CT ABDOMEN PELVIS W CONTRAST STAT 11/13/2024 12:18 AM EDT CBC WITH AUTO DIFFERENTIAL STAT 11/12/2024 7:54 PM EDT LIPASE STAT 11/12/2024 7:54 PM EDT COMPREHENSIVE METABOLIC PANEL STAT 11/12/2024 7:54 PM EDT CBC AND DIFFERENTIAL STAT 11/12/2024 7:54 PM EDT US PELVIS NON OB COMPLETE W TRANSVAGINAL STAT 11/12/2024 7:04 PM EDT SUZANNA SCREENING DIGITAL Routine 09/20/2018 5:09 PM EDT Encounter for screening mammogram for malignant neoplasm of breast from Last 3 Months or Most Recently Relevant to Health Maintenance Results * CT Abdomen Pelvis w Contrast (11/13/2024 12:18 AM EDT) Anatomical Region Laterality Modality Body Computed Tomogra phy 11/13/2024 1:25 AM EDT Impressions 11/13/2024 1:25 AM EDT 1. Hepatic steatosis and hepatomegaly. 2. Cholecystectomy. 3. Scattered colonic diverticula without diverticulitis. 4. Normal appendix. 5. Chronic findings as above. This document has been electronically signed by: Anson Reyes DO on 11/13/2024 01:25:30 Narrative 11/13/2024 1:25 AM EDT INDICATION: Abdominal pain, acute, nonlocalized CT abdomen and pelvis with contrast Comparison: None provided Findings: Subsegmental atelectasis of the lung bases. The abdominal aorta is unremarkable. Hepatic steatosis and hepatomegaly. Mild dilatation of the common bile duct likely related to prior cholecystectomy. The pancreas, spleen, adrenal glands, and kidneys are unremarkable. Tiny umbilical hernia which contains fat. The contour of the urinary bladder is unremarkable. Anteverted uterus. The adnexa are normal. Scattered colonic diverticula without diverticulitis. Mild colonic fecal burden. No bowel obstruction, pneumoperitoneum, or pneumatosis. Normal appendix. Degenerative changes of the lumbar spine. Advanced intervertebral disc disease at L4-L5 with intervertebral disc height loss and reactive endplate sclerosis. Procedure Note Anson Reyes MD - 11/13/2024 INDICATION: Abdominal pain, acute, nonlocalized CT abdomen and pelvis with contrast Comparison: None provided Findings: Subsegmental atelectasis of the lung bases. The abdominal aorta is unremarkable. Hepatic steatosis and hepatomegaly. Mild dilatation of the common bile duct likely related to prior cholecystectomy. The pancreas, spleen, adrenal glands, and kidneys are unremarkable. Tiny umbilical hernia which contains fat. The contour of the urinary bladder is unremarkable. Anteverted uterus. The adnexa are normal. Scattered colonic diverticula without diverticulitis. Mild colonic fecal burden. No bowel obstruction, pneumoperitoneum, or pneumatosis. Normal appendix. Degenerative changes of the lumbar spine. Advanced intervertebral disc disease at L4-L5 with intervertebral disc height loss and reactive endplate sclerosis. IMPRESSION: 1. Hepatic steatosis and hepatomegaly. 2. Cholecystectomy. 3. Scattered colonic diverticula without diverticulitis. 4. Normal appendix. 5. Chronic findings as above. This document has been electronically signed by: Anson Reyes DO on 11/13/2024 01:25:30 Pedro Pablo Pelayo MD [facility] [place]ED[place] Final Result * (ABNORMAL) CBC auto differential (11/12/2024 7:54 PM EDT) WBC 6.2 4.8 - 10.8 K/mcL LAB HEMETOLOGY METHOD 11/12/2024 8:15 PM EDT [facility] RBC 4.30 3.80 - 4.80 M/mcL LAB HEMETOLOGY METHOD 11/12/2024 8:15 PM EDT [facility] Hemoglobin 14.4 11.5 - 16.0 g/dL LAB HEMETOLOGY METHOD 11/12/2024 8:15 PM [facility] Hematocrit 42.7 35.0 - 47.0 % LAB HEMETOLOGY METHOD 11/12/2024 8:15 PM T [facility] MCV 100.2(H) 79.0 - 98.0 FL LAB HEMETOLOGY METHOD 11/12/2024 8:15 PM [facility] MCH 33.8(H) 27.0 - 32.0 pcg LAB HEMETOLOGY METHOD 11/12/2024 8:15 PM [facility] MCHC 33.7 32.0 - 37.0 g/dL LAB HEMETOLOGY METHOD 11/12/2024 8:15 PM [facility] RDW 12.7 11.0 - 15.0 % LAB HEMETOLOGY METHOD 11/12/2024 8:15 PM [facility] Platelets 209 130 - 400 K/mcL LAB HEMETOLOGY METHOD 11/12/2024 8:15 PM [facility] MPV 10.1 7.0 - 11.0 FL LAB HEMETOLOGY METHOD 11/12/2024 8:15 PM [facility] NRBC 0.0 <1.0 % LAB HEMETOLOGY METHOD 11/12/2024 8:15 PM [facility] NRBC Absolute 0.00 <0.10 K/mcL LAB HEMETOLOGY METHOD 11/12/2024 8:15 PM [facility] Neutrophils Relative 60.4 % LAB HEMETOLOGY METHOD 11/12/2024 8:15 PM [facility] Lymphocytes Relative 29.4 % LAB HEMETOLOGY METHOD 11/12/2024 8:15 PM [facility] Monocytes Relative 6.7 % LAB HEMETOLOGY METHOD 11/12/2024 8:15 PM [facility] Eosinophils Relative 2.6 % LAB HEMETOLOGY METHOD 11/12/2024 8:15 PM EDT [facility] Basophils Relative 0.6 % LAB HEMETOLOGY METHOD 11/12/2024 8:15 PM EDT [facility] Immature Granulocytes Relative 0.3 % LAB HEMETOLOGY METHOD 11/12/2024 8:15 PM EDT [facility] Neutrophils Absolute 3.76 1.50 - 7.00 K/mcL LAB HEMETOLOGY METHOD 11/12/2024 8:15 PM EDT [facility] Lymphocytes Absolute 1.83 1.00 - 5.00 K/mcL LAB HEMETOLOGY METHOD 11/12/2024 8:15 PM EDT [facility] Monocytes Absolute 0.42 0.20 - 1.00 K/mcL LAB HEMETOLOGY METHOD 11/12/2024 8:15 PM EDT [facility] Eosinophils Absolute 0.16 0.00 - 0.50 K/mcL LAB HEMETOLOGY METHOD 11/12/2024 8:15 PM EDT [facility] Basophils Absolute 0.04 0.00 - 0.20 K/mcL LAB HEMETOLOGY METHOD 11/12/2024 8:15 PM EDT [facility] Immature Granulocytes Absolute 0.02 0.00 - 0.03 K/mcL LAB HEMETOLOGY METHOD 11/12/2024 8:15 PM EDT [facility] Blood Venous blood specimen / Unknown Venipuncture / Unknown 11/12/2024 7:54 PM EDT 11/12/2024 8:08 PM EDT us Pedro Pablo Pelayo MD LAB BLOOD ORDERABLES Final Resu lt [facility] [address] [place] [address], * Lipase (11/12/2024 7:54 PM EDT) Lipase 21 13 - 75 unit/L LAB [facility] Venous blood specimen / Unknown Venipuncture / Unknown 11/12/2024 7:54 PM EDT 11/12/2024 8:08 PM EDT Pedro Pablo Pelayo MD LAB BLOOD ORDERABLES Final Resu lt [facility] [address] [place] [address], [place] [phone] * (ABNORMAL) Comprehensive metabolic panel (11/12/2024 7:54 PM EDT) [facility] Sodium 138 133 - 145 mmol/L LAB CHEMISTRY METHOD 11/12/2024 8:38 PM [facility] Potassium 4.2 3.5 - 5.5 mmol/L LAB CHEMISTRY METHOD 11/12/2024 8:38 PM [facility] Chloride 104 96 - 110 mmol/L LAB CHEMISTRY METHOD 11/12/2024 8:38 PM [facility] CO2 29 21 - 32 mmol/L LAB CHEMISTRY METHOD 11/12/2024 8:38 PM [facility] Anion Gap 5 3 - 11 LAB CHEMISTRY METHOD 11/12/2024 8:38 PM [facility] Glucose 98 70 - 100 mg/dL LAB CHEMISTRY METHOD 11/12/2024 8:38 PM [facility] BUN 26(H) 5 - 25 mg/dL LAB CHEMISTRY METHOD 11/12/2024 8:38 PM [facility] Creatinine 1.05 0.50 - 1.10 mg/dL LAB CHEMISTRY METHOD 11/12/2024 8:38 PM [facility] eGFR 65 >=60 mL/min/1. 73m2 LAB CHEMISTRY METHOD 11/12/2024 8:38 PM EDT [facility] Comment:Calculation based on the Chronic Kidney Disease Epidemiology Collaboration (CKD-EPI) equation refit without adjustment for race. BUN/Creatinine Ratio 24.8 LAB CHEMISTRY METHOD 11/12/2024 8:38 PM EDT [facility] Calcium 9.2 8.5 - 10.5 mg/dL LAB CHEMISTRY METHOD 11/12/2024 8:38 PM EDT [facility] AST (SGOT) 22 10 - 42 unit/L LAB CHEMISTRY METHOD 11/12/2024 8:38 PM EDT [facility] ALT (SGPT) 37 10 - 60 unit/L LAB CHEMISTRY METHOD 11/12/2024 8:38 PM EDT [facility] Alkaline Phosphatase 84 42 - 121 unit/L LAB CHEMISTRY METHOD 11/12/2024 8:38 PM [facility] Total Protein 7.4 6.0 - 8.0 g/dL LAB CHEMISTRY METHOD 11/12/2024 8:38 PM EDT [facility] Albumin 4.1 3.2 - 5.0 g/dL LAB CHEMISTRY METHOD 11/12/2024 8:38 PM EDT [facility] Total Bilirubin 0.4 0.0 - 1.4 mg/dL LAB CHEMISTRY METHOD 11/12/2024 8:38 PM T [facility] Blood Venous blood specimen / Unknown Venipuncture / Unknown 11/12/2024 7:54 PM EDT 11/12/2024 8:08 PM EDT us Pedro Pablo Pelayo MD LAB BLOOD ORDERABLES Final Resu lt [facility] [address] [place] [address], [place] [phone] * US Pelvis Non OB Complete w Transvaginal (11/12/2024 7:04 PM EDT) Anatomical Region Laterality Modality Body, Pelvis Ultrasound 11/12/2024 7:21 PM EDT Impressions 11/12/2024 7:21 PM EDT 1. Unremarkable pelvic ultrasound with no evidence of ovarian torsion. This document has been electronically signed by: Ramon Fontana MD on 11/12/2024 19:21:46 Narrative 11/12/2024 7:21 PM EDT INDICATION: pain cq torsion US pelvis transabdominal and transvaginal with Doppler Comparison: None provided Findings: Transabdominal scanning performed for overall anatomy. Transvaginal scanning performed for additional detail. Anteverted uterus is 8.7 cm length. Normal myometrium. Endometrium 6 mm thickness. Right ovary 2.8 x 2.0 x 2.2 cm. Left ovary is not seen. Normal color Doppler with arterial/venous spectral tracing of the right ovary and left adnexa No free fluid. Procedure Note Ramon Fontana MD - 11/12/2024 INDICATION: pain cq torsion US pelvis transabdominal and transvaginal with Doppler Comparison: None provided Findings: Transabdominal scanning performed for overall anatomy. Transvaginal scanning performed for additional detail. Anteverted uterus is 8.7 cm length. Normal myometrium. Endometrium 6 mm thickness. Right ovary 2.8 x 2.0 x 2.2 cm. Left ovary is not seen. Normal color Doppler with arterial/venous spectral tracing of the right ovary and left adnexa No free fluid. IMPRESSION: 1. Unremarkable pelvic ultrasound with no evidence of ovarian torsion. This document has been electronically signed by: Ramon Fontana MD on 11/12/2024 19:21:46 us Pedro Pablo Pelayo MD IMG US PROCEDURES Final Result * SUZANNA SCREENING DIGITAL (09/20/2018 5:09 PM EDT) Anatomical Region Laterality Modality Mammography 09/20/2018 10:4 9 AM EDT Narrative 09/20/2018 5:09 PM EDT [facility] Diagnostic Imaging Department [address] [place] [address] Patient: RITA ESCALANTE /Age/Sex: 1975 - 43 - F Unit#: [id number] Location/Status: SPDIMAM/REG CLI Mnemonic/Ordering Site: [facility] Ordering Physician: YVONNE MUNOZ MD [facility] Screening Digital - 09/20/18 - 1123 EXAM: [facility] Screening Digital EXAM DATE AND TIME: 09/20/2018 11:24 AM HISTORY: Screening. Baseline exam. Mother had breast carcinoma age 55. COMPARISON: No comparison studies. TECHNIQUE: CC and MLO views of both breasts were obtained using full field digital mammography. Bilateral digital breast tomosynthesis was performed in the MLO projection. Computer aided detection with the [employer]ix 7.2-H was employed. TISSUE DENSITY: b. There [...] Routine screening mammogram BILATERAL in 1 year. [id number], [id number] 3341F, 7025F Dictating Physician: STEFANY CARVALHO MD Electronically Signed by: STEFANY CARVALHO MD Dic Date/Time: 09/20/181708 Sign date/Time: 09/20/181708 Procedure Note Stefany Carvalho - 04/13/2022 [facility] Diagnostic Imaging Department [address] [place] [address] Patient: RITA ESCALANTE Frannie /Age/Sex: 1975 - 43 - F Unit#: [id number] Location/Status: SPDIMAM/REG CLI Mnemonic/Ordering Site: [facility] Ordering Physician: YVONNE MUNOZ MD [facility] Screening Digital - 09/20/18 - 1123 EXAM: [facility] Screening Digital EXAM DATE AND TIME: 09/20/2018 11:24 AM HISTORY: Screening. Baseline exam. Mother had breast carcinoma age 55. COMPARISON: No comparison studies. TECHNIQUE: CC and MLO views of both breasts were obtained using fullfield digital mammography. Bilateral digital breast tomosynthesis was performedin the MLO projection. Computer aided detection with the [employer] [facility] employed. TISSUE DENSITY: b. There are scattered [...] Routine screening mammogram BILATERAL in 1 year. [id number], [id number] 3341F, 7025F Dictating Physician: STEFANY CARVALHO MD Electronically Signed by: STEFANY CARVALHO MD Dic Date/Time: 09/20/181708 Sign date/Time: 09/20/18 170 Yvonne Munoz MD IMG BI PROCEDURES Final R esult from Last 3 Months or Most Recently Relevant to Health Maintenance Insurance MEDICAID - [place] Care Teams Systems Designer Relationship Specialty Start Date End Date Yvonne Munoz MD [address] [place] [address] PCP - General 07/12/17
[2024-11-30 07:03] LABS: TS Negative Control Passed; TS Panel A 0; TS Panel B 0; TS Positive Control Passed; TSpotTB Negative (Negative)
== END 2024-11-27 15:44 | disposition home or self-care (01) ==
LOC: HO.CHCLDS 15:43
PROVIDERS: Visit Provider Internal Medicine
DX: Z00.00 Encounter for general adult medical examination without abnormal findings (principal); Z11.1 Encounter for screening for respiratory tuberculosis
CPT/HCPCS: 36415; 86481